=== PATIENT | female | born 1995 | race Caucasian/White ===

== ENCOUNTER 2021-06-15 14:07 | Outpatient (REF) | payer OTHER, SELFPAY ==
[2021-06-16 14:22] LABS: BV Int Neg Control Negative (Negative); BV Int Pos Control Positive (Positive)
[2021-06-16 14:40] LABS: CT PCR NOT DETECTED (Not Detect.); NG PCR NOT DETECTED (Not Detect.)
== END 2021-06-15 14:08 | disposition home or self-care (01) ==
LOC: HO.LAB 14:07
PROVIDERS: Visit Provider Advanced Practice Midwife
DX: Z01.411 Encounter for gynecological examination (general) (routine) with abnormal findings (principal); N89.8 Other specified noninflammatory disorders of vagina; Z20.2 Contact with and (suspected) exposure to infections with a predominantly sexual mode of transmission; N92.1 Excessive and frequent menstruation with irregular cycle; B37.3 Candidiasis of vulva and vagina; E28.2 Polycystic ovarian syndrome
CPT/HCPCS: 87480; 87491; 87510; 87591; 87660

== ENCOUNTER 2021-07-10 23:34 | Emergency (ER) | payer OTHER, SELFPAY ==
--- NOTE | 2021-07-10 23:45 | ED_ITS ---
HPI - Syncope General Chief Complaint: Weakness Stated Complaint: syncope Source: patient Mode of arrival: ambulatory Limitations: no limitations History of Present Illness HPI narrative: 26-year-old female presents with near syncopal episode, feeling shaky, weak, and like she was going to pass out. complaint: felt faint and almost passed out Onset (ago): hour(s) (2) -: minutes(s) Prodromal symptoms: other (Weakness) Context: at rest Injuries sustained associated with event: none Current symptoms: weakness Treatments prior to arrival: none Related Data Home Medications Medication Instructions Recorded Confirmed insulin glargine 100 unit/mL (3 10 unit SUBCUT QPM 06/15/21 mL) subcutaneous pen (Lantus Solostar U-100 Insulin) metformin 500 mg tablet 500 mg PO DAILY 06/15/21 06/15/21 Previous Rx's Medication Instructions Recorded clotrimazole 1 % vaginal cream 1 appful VAGINAL BEDTIME #45 g 06/15/21 fluconazole 150 mg tablet 150 mg PO Q3D #2 tab 06/15/21 metronidazole 500 mg tablet 500 mg PO BID 7 Days #14 tab 06/20/21 Allergies Allergy/AdvReac Type Severity Reaction Status Date / Time No Known Allergies Allergy Verified 07/11/21 00:07 [No Known Allergies*] Review of Systems Review of Systems: Constitutional: Positive weakness, positive shakiness, positive near-syncope No Fever, No Chills ENT/Mouth: No Ear Pain, No Hoarseness, No sore throat Eyes: No Eye Pain, No Swelling, No Redness, No Foreign Body Cardiovascular: No Chest Pain, No SOB Respiratory: No Cough, No Dyspnea Gastrointestinal: No Nausea, No Vomiting, No Diarrhea, No abdominal Pain Genitourinary: No Dysuria, No Hematuria Musculoskeletal: No joint pain, No Myalgias, No Joint Swelling Skin: No Skin lacerations, No rash Neuro: No Weakness, No Numbness, No Paresthesias, No Loss of Consciousness, No Dizziness, No Headache Psych: No Anxiety/Panic, No Depression Heme/Lymph: no easy bruising, no Lymphadenopathy Endocrine: No Polyuria, No Polydipsia Yes all other systems are reviewed and are negative PMFSH Past Medical History Attestation statement: The following information was validated with the patient. Source: old records reviewed Medical History Diabetes PCOS (polycystic ovarian syndrome) Family History Family History Father Cancer Social History Social History Alcohol intake: never Patient Tobacco Use Status: Never used Tobacco Advance Directives: No Patient : No Gender identity: Female Physical Exam Vital Signs: Vital Signs: Last Vital Signs Temp 98.5 F 07/11/21 02:01 Pulse 100 07/11/21 02:01 Resp 14 07/11/21 02:01 BP 99/60 07/11/21 02:01 Pulse Ox 95 07/11/21 02:01 BMI result Body Mass Index 38.2 Appearance: Alert. Oriented X3. No acute distress. Eyes: Pupils equal, round and reactive to light. ENT: Pharynx normal. Neck: Normal inspection. Neck supple. CVS: Normal heart rate and rhythm. Pulses normal. Respiratory: No respiratory distress. Breath sounds normal. Abdomen: Soft and nontender. Skin: Skin warm and dry. Normal skin color. Normal skin turgor. Extremities: No lower extremity edema. Gait well-balanced well coordinated. Neuro: No motor deficit. No sensory deficit. Cranial nerves 2-12 intact. Course Course Course Narrative: 26-year-old female patient presents with near syncopal episode, shakiness and weakness. Patient did not lose consciousness, was able to sit and rest, believes that her blood sugar may be off. Will order labs, fluids, urinalysis test. 01:30 elevated glucose of 400. Will order 15 units subQ insulin. Patient does receive 10 units nightly and did not take her evening dose of insulin today. 02:09 glucose 316, will give 5 IV and 2 L of fluids. Patient states to feel much better, blood pressure is 99/60 and is asymptomatic. Patient does understand that she must follow-up with primary care physician as she needs better control of her blood sugars and may require sliding scale and addition of long-acting insulin. Patient verbalized understanding of and agrees to plan of care discharge home. Patient verbalized understanding of signs and symptoms indicating need for emergent intervention MDM - Syncope MDM Narrative Medical decision making narrative: Hypoglycemia, hyperglycemia Differential Diagnosis Differential diagnosis: Likely vasovagal syncope and dehydration Medical Records Attestation: I reviewed the patient's medical records. Lab Data Attestation: I reviewed the patient's lab results. Result diagrams: 07/11/21 00:29 07/11/21 00:29 Labs: Lab Results 07/11/21 07/11/21 07/11/21 Range/Units 00: 00:29 00:29 WBC 11.8 H (4.8-10.8) X10*3/uL RBC 5.27 (4.20-5.50) X10*6/uL Hgb 16.2 H (12.0-16.0) g/dl Hct 46.8 (37.0-47.0) % MCV 88.8 (80.0-98.0) fL MCH 30.7 (27.0-33.0) pg MCHC 34.6 (31.0-35.0) g/dl RDW 11.8 (11.0-16.0) % Plt Count 362 (160-400) X10*3/uL MPV 8.9 L (9.4-12.3) fL Immature Gran % (Auto) 0.3 (0.0-0.4) % Neut % (Auto) 81.4 H (45-73) % Lymph % (Auto) 13.1 L (20-40) % [place] % (Auto) 4.6 (2-11) % Eos % (Auto) 0.3 (0-4) % Baso % (Auto) 0.3 (0-2) % Lymph # (Auto) 1.6 (1.2-4.9) X10*3/uL [place] # (Auto) 0.5 (0.1-1.2) X10*3/uL Eos # (Auto) 0.0 (0.0-0.4) X10*3/uL Baso # (Auto) 0.0 (0.0-0.2) X10*3/uL Abs Immat Gran (auto) 0.04 H (0.00-0.03) X10*3/uL Absolute Neuts (auto) 9.6 H (2.0-8.3) x10*3/uL Absolute Nucleated RBC 0.000 (0.0-0.012) X10*3/uL Nucleated RBC % (auto) 0.0 (0.0-0.2) /100WBC Sodium (135-145) mmol/L Potassium (3.3-5.1) mmol/L Chloride (96-108) mmol/L Carbon Dioxide (22-29) mmol/L Anion Gap (12-20) BUN (9-16) mg/dL Creatinine (0.5-1.4) mg/dL Estim Creat Clear Calc Estimated GFR POC Glucose 343 H (60-115) mg/dL Random Glucose (60-115) mg/dL Calcium (8.4-10.2) mg/dL Urine Color Urine Appearance Urine pH (5.0-8.0) Ur Specific [place] (1.005-1.025) Urine Protein (NEG-TRACE) MG/DL Urine Glucose (UA) (NEG) MG/DL Urine Ketones (NEG) MG/DL Urine Blood (NEG) Urine Nitrite (NEG) Ur Leukocyte Esterase (NEG) Urine RBC (0) /HPF Urine WBC (0-4) /HPF Ur Squamous Epith Cells /LPF Urine Bacteria /LPF Urine Yeast /HPF Urine Test (NEGATIVE) COVID-19 (CHASE) Negative (Negative) COVID-19 Clin Com See Note 07/11/21 07/11/21 07/11/21 Range/Units 00:29 01:11 01:11 WBC (4.8-10.8) X10*3/uL RBC (4.20-5.50) X10*6/uL Hgb (12.0-16.0) g/dl Hct (37.0-47.0) % MCV (80.0-98.0) fL MCH (27.0-33.0) pg MCHC (31.0-35.0) g/dl RDW (11.0-16.0) % Plt Count (160-400) X10*3/uL MPV (9.4-12.3) fL Immature Gran % (Auto) (0.0-0.4) % Neut % (Auto) (45-73) % Lymph % (Auto) (20-40) % [place] % (Auto) (2-11) % Eos % (Auto) (0-4) % Baso % (Auto) (0-2) % Lymph # (Auto) (1.2-4.9) X10*3/uL [place] # (Auto) (0.1-1.2) X10*3/uL Eos # (Auto) (0.0-0.4) X10*3/uL Baso # (Auto) (0.0-0.2) X10*3/uL Abs Immat Gran (auto) (0.00-0.03) X10*3/uL Absolute Neuts (auto) (2.0-8.3) x10*3/uL Absolute Nucleated RBC (0.0-0.012) X10*3/uL Nucleated RBC % (auto) (0.0-0.2) /100WBC Sodium 133 L (135-145) mmol/L Potassium 5.1 (3.3-5.1) mmol/L Chloride 97 (96-108) mmol/L Carbon Dioxide 24 (22-29) mmol/L Anion Gap 17 (12-20) BUN 13 (9-16) mg/dL Creatinine 0.90 (0.5-1.4) mg/dL Estim Creat Clear Calc 111.4 Estimated GFR > 60 POC Glucose (60-115) mg/dL Random Glucose 411 H* (60-115) mg/dL Calcium 10.1 (8.4-10.2) mg/dL Urine Color YELLOW Urine Appearance HAZY Urine pH 5.5 (5.0-8.0) Ur Specific [place] 1.015 (1.005-1.025) Urine Protein NEG (NEG-TRACE) MG/DL Urine Glucose (UA) >=1000 H (NEG) MG/DL Urine Ketones 40 (NEG) MG/DL Urine Blood TRACE (NEG) Urine Nitrite NEG (NEG) Ur Leukocyte Esterase 1+ H (NEG) Urine RBC 0-2 (0) /HPF Urine WBC 30-49 H (0-4) /HPF Ur Squamous Epith Cells 2+ /LPF Urine Bacteria 2+ /LPF Urine Yeast 3+ /HPF Urine Test NEGATIVE (NEGATIVE) COVID-19 (CHASE) (Negative) COVID-19 Clin Com 07/11/21 Range/Units 02:09 WBC (4.8-10.8) X10*3/uL RBC (4.20-5.50) X10*6/uL Hgb (12.0-16.0) g/dl Hct (37.0-47.0) % MCV (80.0-98.0) fL MCH (27.0-33.0) pg MCHC (31.0-35.0) g/dl RDW (11.0-16.0) % Plt Count (160-400) X10*3/uL MPV (9.4-12.3) fL Immature Gran % (Auto) (0.0-0.4) % Neut % (Auto) (45-73) % Lymph % (Auto) (20-40) % [place] % (Auto) (2-11) % Eos % (Auto) (0-4) % Baso % (Auto) (0-2) % Lymph # (Auto) (1.2-4.9) X10*3/uL [place] # (Auto) (0.1-1.2) X10*3/uL Eos # (Auto) (0.0-0.4) X10*3/uL Baso # (Auto) (0.0-0.2) X10*3/uL Abs Immat Gran (auto) (0.00-0.03) X10*3/uL Absolute Neuts (auto) (2.0-8.3) x10*3/uL Absolute Nucleated RBC (0.0-0.012) X10*3/uL Nucleated RBC % (auto) (0.0-0.2) /100WBC Sodium (135-145) mmol/L Potassium (3.3-5.1) mmol/L Chloride (96-108) mmol/L Carbon Dioxide (22-29) mmol/L Anion Gap (12-20) BUN (9-16) mg/dL Creatinine (0.5-1.4) mg/dL Estim Creat Clear Calc Estimated GFR POC Glucose 316 H (60-115) mg/dL Random Glucose (60-115) mg/dL Calcium (8.4-10.2) mg/dL Urine Color Urine Appearance Urine pH (5.0-8.0) Ur Specific [place] (1.005-1.025) Urine Protein (NEG-TRACE) MG/DL Urine Glucose (UA) (NEG) MG/DL Urine Ketones (NEG) MG/DL Urine Blood (NEG) Urine Nitrite (NEG) Ur Leukocyte Esterase (NEG) Urine RBC (0) /HPF Urine WBC (0-4) /HPF Ur Squamous Epith Cells /LPF Urine Bacteria /LPF Urine Yeast /HPF Urine Test (NEGATIVE) COVID-19 (CHASE) (Negative) COVID-19 Clin Com ECG Data Attestation: I personally reviewed and interpreted this ECG as follows: ECG interpretation date: 07/11/21 ECG interpretation time: 00:53 Prior ECG tracings: not available for review Interpretation: Vent. rate 74 BPM WV interval 126 ms QRS duration 74 ms QT/QTc 358/397 ms P-R-T axes 30 45 40 Normal sinus rhythm Normal ECG No previous ECGs available Critical Care Time Critical Care Time Critical Care Time: Yes Total Critical Care Time: 40 Attestation: I have personally provided critical care time exclusive of time spent on separately billable procedures. Time includes review of laboratory data, radiology results, discussion with consultants, and monitoring for potential decompensation. Interventions were performed as documented. Discharge Plan Discharge Clinical Impression: Diabetes, Dehydration, Hyperglycemia Patient Disposition: Home, Self-Care Instructions: Dehydration (ED), Diabetic Hyperglycemia (ED) Additional Instructions: You were evaluated for a near syncopal episode. Your blood sugar was 411. We gave you 15 units of insulin sub cutaneous and 5 units of insulin IV along with 2 L of fluid. You must follow-up with her primary care physician and endocrinology as you may need better glucose control. You may need a sliding scale or a long acting insulin. Please discuss this with your primary care provider. Thank you for choosing this emergency department for evaluation. Please follow-up with primary care physician as needed. Return to the emergency department for any new, concerning, or worsening symptoms. Prescriptions: No Action metronidazole 500 mg tablet 500 mg PO BID 7 Days Qty: 14 0RF Rx Instructions: Take with food, Avoid alcohol and vinegar products metformin 500 mg tablet 500 mg PO DAILY 0RF Lantus Solostar U-100 Insulin 100 unit/mL (3 mL) insulin pen 10 unit subcut QPM 0RF fluconazole 150 mg tablet 150 mg PO Q3D Qty: 2 5RF Rx Instructions: may repeat second dose 72 hrs after first dose if symptoms persist clotrimazole 1 % cream 1 appful vaginal BEDTIME Qty: 45 4RF Stand Alone Forms: Work/School Release
--- NOTE | 2021-07-10 23:47 | ECG_ITS ---
Test Reason : MED CLEARANCE Blood Pressure : / mmHG Vent. Rate : 074 BPM Atrial Rate : 074 BPM P-R Int : 126 ms QRS Dur : 074 ms QT Int : 358 ms P-R-T Axes : 030 045 040 degrees QTc Int : 397 ms Normal sinus rhythm Normal ECG No previous ECGs available Referred By: Haleigh Khanna Electronically Signed By:Brian Talley
[2021-07-10 23:56] VITALS: BP 105/68; PULSE 87; RESP 12; TEMP 36.9; O2SAT 94
[2021-07-11 00:03] VITALS: BMI 38.2
[2021-07-11 00:28] LABS: Glucose, Whole Blood 343 mg/dL (60-115)
[2021-07-11] MEDS: 0.9 % Sodium Chloride 1,000 ML 999 ML IVCONT ×2 (00:29→02:29)
--- NOTE | 2021-07-11 00:31 | PC.NURSE ---
PT stated that she was diagnosed with diabetes one year ago and that her blood sugar usually runs high (>300). PT stated that she takes metformin and Lantus at home. PT POC was elevated at this time.
[2021-07-11 00:35] LABS: MANUAL DIFF FLAG NO
[2021-07-11 00:36] LABS: Basophils Percent Auto 0.3 % (0-2); Eosinophils Percent Auto 0.3 % (0-4); Hematocrit 46.8 % (37.0-47.0); Hemoglobin 16.2 g/dl (12.0-16.0); Imm Gran Abs Auto 0.04 X10*3/uL (0.00-0.03); Imm Gran Pct Auto 0.3 % (0.0-0.4); Lymphocytes Absolute Auto 1.6 X10*3/uL (1.2-4.9); Lymphocytes Percent Auto 13.1 % (20-40); Mean Corpuscular HGB Conc 34.6 g/dl (31.0-35.0); Mean Corpuscular Hemoglobin 30.7 pg (27.0-33.0); Mean Corpuscular Volume 88.8 fL (80.0-98.0); Mean Platelet Volume 8.9 fL (9.4-12.3); Monocytes Absolute Auto 0.5 X10*3/uL (0.1-1.2); Monocytes Percent Auto 4.6 % (2-11); Neutrophils Absolute Auto 9.6 x10*3/uL (2.0-8.3); Neutrophils Percent Auto 81.4 % (45-73); Platelet Count 362 X10*3/uL (160-400); Red Blood Count 5.27 X10*6/uL (4.20-5.50); Red Cell Distribution Width 11.8 % (11.0-16.0); White Blood Count 11.8 X10*3/uL (4.8-10.8)
[2021-07-11 00:52] LABS: COVID-19 Test Negative (Negative); IDNOW Serial# 9DD0AD1C
[2021-07-11 00:59] LABS: Anion Gap 17 (12-20); Blood Urea Nitrogen 13 mg/dL (9-16); Calcium 10.1 mg/dL (8.4-10.2); Carbon Dioxide 24 mmol/L (22-29); Chloride 97 mmol/L (96-108); Creatinine Clr Calc Pharmacy 111.4; Estimated Glomerular Filt Rate > 60; Glucose Random 411 mg/dL (60-115); Potassium 5.1 mmol/L (3.3-5.1); Sodium 133 mmol/L (135-145)
[2021-07-11 01:16] LABS: Appearance Urine HAZY; Color Urine YELLOW; Glucose Urine UA >=1000 MG/DL (NEG); Leukocyte Esterase Urine 1+ (NEG); Nitrite Urine NEG (NEG); PH 5.5 (5.0-8.0); Specific Gravity - Urine 1.015 (1.005-1.025); UACC Culture Trigger YES; Urine Blood TRACE (NEG); Urine Ketones 40 MG/DL (NEG); Urine Protein NEG (NEG-TRACE)
[2021-07-11 01:18] LABS: UPreg QC Valid YES; Urine Pregnancy NEGATIVE (NEGATIVE)
[2021-07-11 01:29] VITALS: BP 96/62; PULSE 82; RESP 18; O2SAT 95
[2021-07-11 01:33] LABS: RBC Urine 0-2 /HPF (0); Squamous Epithelial Cell Urine 2+ /LPF; WBC Urine 30-49 /HPF (0-4)
[2021-07-11 01:34] LABS: Bacteria Urine 2+ /LPF
[2021-07-11] MEDS: Insulin Lispro 100 UNIT/ML 3 ML VIAL 15 UNIT SUBCUT (01:37)
[2021-07-11 02:01] VITALS: BP 99/60; PULSE 100; RESP 14; TEMP 36.9; O2SAT 95
[2021-07-11 02:13] LABS: Glucose, Whole Blood 316 mg/dL (60-115)
[2021-07-11] MEDS: Insulin Regular, Human 100 UNIT/ML 3 ML VIAL IVPUSH (02:29)
[2021-07-11 03:36] LABS: Glucose, Whole Blood 198 mg/dL (60-115)
== END 2021-07-11 03:36 | disposition home or self-care (01) ==
PROVIDERS: Nurse Practitioner Family; Emergency Provider Internal Medicine
DX: E11.65 Type 2 diabetes mellitus with hyperglycemia (principal); E86.0 Dehydration; Z20.822 Contact with and (suspected) exposure to COVID-19; Z79.4 Long term (current) use of insulin
CPT/HCPCS: 36415; 80048; 81001; 81025; 82947; 85025; 87086; 87147; 87635; 93005; 96361; 96374; 99284; 99291

== ENCOUNTER 2022-03-31 07:05 | Emergency (ER) | payer OTHER, SELFPAY ==
[2022-03-31 07:07] VITALS: BP 122/80; PULSE 100; RESP 18; TEMP 36.7; O2SAT 98; BMI 35.6
[2022-03-31 07:30] LABS: Appearance Urine Turbid; Color Urine Yellow; Glucose Urine UA >=1000 mg/dL (Negative); Leukocyte Esterase Urine Moderate (2+) (Negative); Nitrite Urine Negative (Negative); Specific Gravity - Urine >= 1.030 (1.005-1.025); UMIC TRIGGER UACC YES; Urine Blood Large (3+) (Negative); Urine Ketones Negative (Negative); Urine Protein 100 (2+) mg/dL (Neg-Trace)
[2022-03-31 07:33] VITALS: BP 108/76; PULSE 89; RESP 12; TEMP 36.9; O2SAT 98
[2022-03-31 07:45] LABS: Bacteria Urine 4+ (None Seen); Hyaline Casts Urine 0-2 /LPF (0-2); RBC Urine >20 /HPF (0-2); UACC Culture Trigger YES; WBC Clumps Urine Present; WBC Urine >50 /HPF (0-5)
--- NOTE | 2022-03-31 08:09 | ED.FEMALEGU ---
HPI - Female Genitourinary General Chief complaint: Urogenital-Female Stated complaint: pain upon urination Time Seen by Provider: 03/31/22 07:52 Source: patient Mode of arrival: ambulatory Limitations: no limitations History of Present Illness HPI Narrative: diffficult to urinate,pain during urination,denies fever/chills/abdominal pain/nausea/vomiting.She is diabetic MD elicited complaint: dysuria Pertinent past history: diabetes Onset (ago): day(s) (2) Severity: mild Female Urogenital Radiation: Non-Radiating Consistency: constant Urinary symptoms: Dysuria, Urgency, Frequency and Difficulty Urinating Exacerbating factors: urination Relieving factors: none Associated symptoms: denies other symptoms Related Data Home Medications Medication Instructions Recorded Confirmed insulin glargine 100 unit/mL (3 10 unit subcut QPM 06/15/21 mL) subcutaneous pen (Lantus Solostar U-100 Insulin) metformin 500 mg tablet 500 mg PO DAILY 06/15/21 06/15/21 Previous Rx's Medication Instructions Recorded clotrimazole 1 % vaginal cream 1 appful vaginal BEDTIME #45 grams 06/15/21 fluconazole 150 mg tablet 150 mg PO Q3D 2 doses #2 tabs 06/15/21 metronidazole 500 mg tablet 500 mg PO BID 7 days #14 tabs 06/20/21 cephalexin 500 mg capsule 500 mg PO Q8H #21 caps 03/31/22 phenazopyridine 200 mg tablet 200 mg PO BID 2 days #4 tabs 03/31/22 (Pyridium) Allergies Allergy/AdvReac Type Severity Reaction Status Date / Time No Known Allergies Allergy Verified 07/11/21 00:07 [No Known Allergies*] Review of Systems Review of Systems: Yes all other systems are reviewed and are negative Constitutional: Constitutional: Denies fever(s) Gastrointestinal: Gastrointestinal: Denies nausea and Denies vomiting Neurologic: Reports system reviewed and no additional complaints, except as documented COUNT INCLUDES [facility] Past Medical History COUNT INCLUDES THE [facility] Narrative: diabetes Medical History Diabetes PCOS (polycystic ovarian syndrome) Family History Family History Father Cancer Social History Social History Alcohol intake: never Patient Tobacco Use Status: Never used Tobacco Advance Directives: No Advance Directives Information Provided: No Gender identity: Female Physical Exam Vital Signs: Vital Signs: Last Vital Signs Temp 98.5 F 03/31/22 07:33 Pulse 89 03/31/22 07:33 Resp 12 03/31/22 07:33 BP 108/76 03/31/22 07:33 Pulse Ox 98 03/31/22 07:33 O2 Del Method 03/31/22 07:33 BMI result Body Mass Index 35.6 Const: General: cooperative Orientation/consciousness: patient oriented x3 HEENT: Head: Yes normal to inspection General nose exam: Normal external nose present Mouth: Normal oral and palatal mucosa present Neck: Neck: Yes normal visual inspection and Yes full ROM Chest: Chest palpation & inspection: normal inspection of the chest Resp: Effort & Inspection: normal respiratory effort Auscultation: clear to auscultation bilaterally Cardio: Jugular venous distension: no JVD Rate: regular rate Rhythm: regular rhythm GI: Inspection: Yes normal to inspection Palpation (GI): Soft to palpation Skin: General skin exam: no rashes or lesions noted and elasticity normal Lesions: no lesions Rashes: no rashes Neuro: General: patient oriented x3 MDM - Female Genitourinary MDM Narrative Medical decision making narrative: This is a 26 years old diabetic patient presented with dysuria frequency and urinalysis consistent with the UTI, will discharge home on p.o. antibiotics Lab Data Labs: Lab Results 03/31/22 Range/Units 07:15 Urine Color Yellow Urine Appearance Turbid Urine pH 6.0 (5.0-9.0) Ur Specific [place] >= 1.030 H (1.005-1.025) Urine Protein 100 (2+) H (Neg-Trace) mg/dL Urine Glucose (UA) >=1000 H (Negative) mg/dL Urine Ketones Negative (Negative) mg/dL Urine Blood Large (3+) H (Negative) Urine Nitrite Negative (Negative) Ur Leukocyte Esterase Moderate (2+) H (Negative) Urine RBC >20 H (0-2) /HPF Urine WBC >50 H (0-5) /HPF Urine WBC Clumps Present Ur Squamous Epith Cells 3-5 (0-2) /HPF Urine Bacteria 4+ (None Seen) Hyaline Casts 0-2 (0-2) /LPF Discharge Plan Discharge Clinical Impression: UTI (urinary tract infection) Patient Disposition: Home, Self-Care Instructions: Acute Urinary Retention in Women (ED) Prescriptions: New cephalexin 500 mg capsule 500 mg PO Q8H Qty: 21 0RF phenazopyridine [Pyridium] 200 mg tablet 200 mg PO BID 2 Days Qty: 4 0RF No Action metronidazole 500 mg tablet 500 mg PO BID 7 Days Qty: 14 0RF Rx Instructions: Take with food, Avoid alcohol and vinegar products metformin 500 mg tablet 500 mg PO DAILY Lantus Solostar U-100 Insulin 100 unit/mL (3 mL) insulin pen 10 unit subcut QPM fluconazole 150 mg tablet 150 mg PO Q3D Qty: 2 5RF Rx Instructions: may repeat second dose 72 hrs after first dose if symptoms persist clotrimazole 1 % cream 1 appful vaginal BEDTIME Qty: 45 4RF Stand Alone Forms: Work/School Release Interventions: ED Discharge Assessment Last Done: 03/31/22 08:32 Discharge Date/Time: 03/31/22 08:53
[2022-03-31] MEDS: cephALEXin 500 MG CAPSULE PO (08:24)
[2022-03-31] MEDS: Phenazopyridine HCL 200 MG TABLET PO (08:24)
== END 2022-03-31 08:53 | disposition home or self-care (01) ==
LOC: HO.ED 08:51
PROVIDERS: Emergency Provider Emergency Medicine
DX: N39.0 Urinary tract infection, site not specified (principal); R30.0 Dysuria; R39.15 Urgency of urination; Z79.899 Other long term (current) drug therapy
CPT/HCPCS: 81001; 87086; 99283

== ENCOUNTER 2022-11-05 07:10 | Emergency (ER) | payer OTHER, SELFPAY ==
[2022-11-05 07:16] VITALS: BP 121/78; PULSE 101; RESP 17; TEMP 36.9; O2SAT 96; BMI 37.2
[2022-11-05 07:40] LABS: MANUAL DIFF FLAG NO
[2022-11-05 07:43] LABS: Basophils Absolute Auto 0.1 X10*3/uL (0.0-0.2); Basophils Percent Auto 0.4 % (0-2); Eosinophils Absolute Auto 0.1 X10*3/uL (0.0-0.4); Eosinophils Percent Auto 0.4 % (0-4); Hematocrit 47.5 % (37.0-47.0); Hemoglobin 16.2 g/dl (12.0-16.0); Imm Gran Abs Auto 0.04 X10*3/uL (0.00-0.03); Imm Gran Pct Auto 0.3 % (0.0-0.4); Lymphocytes Absolute Auto 3.8 X10*3/uL (1.2-4.9); Lymphocytes Percent Auto 27.4 % (20-40); Mean Corpuscular HGB Conc 34.1 g/dl (31.0-35.0); Mean Corpuscular Hemoglobin 29.5 pg (27.0-33.0); Mean Corpuscular Volume 86.4 fL (80.0-98.0); Monocytes Absolute Auto 0.9 X10*3/uL (0.1-1.2); Monocytes Percent Auto 6.1 % (2-11); Neutrophils Absolute Auto 9.2 x10*3/uL (2.0-8.3); Neutrophils Percent Auto 65.4 % (45-73); Platelet Count 435 X10*3/uL (160-400); Red Cell Distribution Width 11.9 % (11.0-16.0)
[2022-11-05 07:50] LABS: Appearance Urine Clear; Color Urine Yellow; Glucose Urine UA >=1000 mg/dL (Negative); Leukocyte Esterase Urine Moderate (2+) (Negative); Nitrite Urine Negative (Negative); Specific Gravity - Urine >= 1.030 (1.005-1.025); UMIC TRIGGER UACC YES; Urine Blood Moderate (2+) (Negative); Urine Ketones Negative (Negative); Urine Protein 30 (1+) mg/dL (Neg-Trace)
[2022-11-05 07:53] LABS: UPreg QC Valid YES; Urine Pregnancy NEGATIVE (NEGATIVE)
[2022-11-05 07:58] LABS: Bacteria Urine 3+ (None Seen); Hyaline Casts Urine 0-2 /LPF (0-2); RBC Urine >20 /HPF (0-2); Squamous Epithelial Cell Urine 0-2 /HPF (0-2); UACC Culture Trigger YES; WBC Urine >50 /HPF (0-5)
[2022-11-05 08:14] LABS: Anion Gap 15 (12-20); Blood Urea Nitrogen 10 mg/dL (9-16); Calcium 10.3 mg/dL (8.4-10.2); Carbon Dioxide 29 mmol/L (22-29); Chloride 96 mmol/L (96-108); Estimated Glomerular Filt Rate > 60; Glucose Random 451 mg/dL (60-115); Potassium 4.4 mmol/L (3.3-5.1); Sodium 136 mmol/L (135-145)
[2022-11-05] MEDS: Ondansetron ODT 4 MG TAB.RAPDIS TRANSLINGU (08:18)
[2022-11-05] MEDS: Phenazopyridine HCL 200 MG TABLET PO (08:19)
[2022-11-05] MEDS: Insulin Lispro 100 UNIT/ML 3 ML VIAL 10 UNIT SUBCUT (08:36)
[2022-11-05] MEDS: cephALEXin 500 MG CAPSULE PO (08:36)
[2022-11-05] MEDS: metFORMIN HCl 1,000 MG TABLET 1000 MG PO (08:36)
[2022-11-05 08:38] LABS: Glucose, Whole Blood 419 mg/dL (60-115)
[2022-11-05 09:18] VITALS: BP 101/66; PULSE 76; RESP 16; TEMP 37.1; O2SAT 96
[2022-11-05 11:39] VITALS: BP 111/63; PULSE 80; RESP 16; TEMP 36.9; O2SAT 97
[2022-11-05 11:49] LABS: Glucose, Whole Blood 229 mg/dL (60-115)
--- NOTE | 2022-11-05 13:08 | ED_ITS ---
HPI - General Adult General Chief complaint: General Medical Stated complaint: nausea abd pain Time Seen by Provider: 11/05/22 07:45 Source: patient Mode of arrival: ambulatory Limitations: no limitations History of Present Illness HPI narrative: 27-year-old female type 2 diabetes noncompliant with medication presents with urinary frequency, urgency, dysuria. She has no hematuria. Symptoms are severe. Associated with suprapubic pain. The pain does not radiate. She denies any back or flank pain. He does have some mild nausea but no vomiting. Denies any fevers or chills. She denies any vaginal bleeding or discharge. She also could complains of polydipsia. Patient has been off her medications for quite some time. Related Data Home Medications Medication Instructions Recorded Confirmed insulin glargine 100 unit/mL (3 10 unit subcut QPM 06/15/21 mL) subcutaneous pen (Lantus Solostar U-100 Insulin) metformin 500 mg tablet 500 mg PO DAILY 06/15/21 06/15/21 Previous Rx's Medication Instructions Recorded clotrimazole 1 % vaginal cream 1 appful vaginal BEDTIME #45 grams 06/15/21 fluconazole 150 mg tablet 150 mg PO Q3D 2 doses #2 tabs 06/15/21 metronidazole 500 mg tablet 500 mg PO BID 7 days #14 tabs 06/20/21 cephalexin 500 mg capsule 500 mg PO Q8H #21 caps 03/31/22 phenazopyridine 200 mg tablet 200 mg PO BID 2 days #4 tabs 03/31/22 (Pyridium) blood sugar diagnostic (Blood #100 ea 11/05/22 Glucose Test strips) blood-glucose meter (Blood Glucose #1 ea 11/05/22 Monitoring kit) cephalexin 500 mg capsule 500 mg PO BID #14 caps 11/05/22 lancets 26 gauge (Easy Touch #100 ea 11/05/22 Safety Lancets) metformin 1,000 mg 24 hr 1,000 mg PO DAILY #30 tabs 11/05/22 tablet,extended release Allergies Allergy/AdvReac Type Severity Reaction Status Date / Time No Known Allergies Allergy Verified 07/11/21 00:07 [No Known Allergies*] Review of Systems Review of Systems: CONSTITUTIONAL: Denies weight loss, fever and chills. HEENT: Denies changes in vision and hearing. RESPIRATORY: Denies SOB and cough. CV: Denies palpitations no CP. GI: Denies abdominal pain, nausea, vomiting and diarrhea. : + dysuria and urinary frequency. MSK: Denies myalgia and joint pain. SKIN: Denies rash and pruritus. NEUROLOGICAL: Denies headache and syncope. PSYCHIATRIC: Denies recent changes in mood. Denies anxiety and depression. All other ROS are negative unless in HPI PMFSH Past Medical History Medical History Diabetes PCOS (polycystic ovarian syndrome) Family History Family History Father Cancer Social History Social History Alcohol intake: never Patient Tobacco Use Status: Never used Tobacco Smoked in Last 30 Days: No Use of substances other than those prescribed or required for medical reasons: No Advance Directives: No Advance Directives Information Provided: Yes Patient : No Gender identity: Female Physical Exam ED Vital Signs: Vital Signs - 24 hr 11/05/22 07:16 11/05/22 09:18 11/05/22 11:39 Temperature 98.4 F 98.7 F 98.4 F Pulse Rate 101 H 76 80 Respiratory Rate 17 16 16 Blood Pressure 121/78 101/66 111/63 Pulse Oximetry 96 96 97 Oxygen Delivery Method Room Air Room Air Room Air BMI result Body Mass Index 37.2 GEN: Well developed, no acute distress, alert, oriented HEENT: Normocephalic, atraumatic, normal external ears, nose appears normal, no oropharyngeal edema or exudates Eyes: Normal to appearance Neck: Supple, no lymphadenopathy Respiratory: Talks in complete sentences, no respiratory distress, clear to auscultation bilaterally Cardiovascular: Regular rate and rhythm, no murmurs rubs or gallops Abdomen: Soft, nontender, nondistended, no guarding, no rebound Back: No CVA tenderness Extremities: No clubbing cyanosis or edema Neurologic: No focal neurologic deficits, cranial nerves 2-12 intact, strength is 5/5 bilaterally Skin: No rash Course Course Course Narrative: Patient presents with suprapubic pain and urinary complaints. She also has some polydipsia. Symptoms are consistent with urinary tract infection plus her hyperglycemia. While in the emergency department, she was treated with metform in and insulin. Blood sugars responded nicely. In addition, she was treated with Keflex and Pyridium for her urinary complaints. I will be discharging the patient. I have prescribed a glucometer, test strips, lancets, metformin 1000 mg extended release and Keflex for UTI. I have referred her to primary care. Medications Administered Discontinued Medications Generic Name Dose Route Start Last Admin Trade Name rAt PRN Reason Stop Dose Admin Cephalexin HCl 500 mg 11/05/22 08:19 11/05/22 08:36 Cephalexin 500 Mg Capsule PO 11/05/22 08:20 500 mg ONCE ONE Administration Insulin Human Lispro 10 unit 11/05/22 08:19 11/05/22 08:36 Insulin Lispro 100 Unit/Ml 3 Ml Vial SUBCUT 11/05/22 08:20 10 unit ONCE ONE Administration Metformin HCl 1,000 mg 11/05/22 08:19 11/05/22 08:36 Metformin Hcl 1,000 Mg Tablet PO 11/05/22 08:20 1,000 mg ONCE ONE Administration Ondansetron HCl 4 mg 11/05/22 08:02 11/05/22 08:18 Ondansetron Odt 4 Mg Tab.Rapdis TRANSLINGU 11/05/22 08:03 4 mg ONCE ONE Administration Phenazopyridine HCl 200 mg 11/05/22 08:02 11/05/22 08:19 Phenazopyridine Hcl 200 Mg Tablet PO 11/05/22 08:03 200 mg ONCE ONE Administration Medical Decision Making Medical Decision Making [facility] Narrative: 27-year-old female with history of noncompliant diabetic presents with urinary tract symptoms. Examination was benign. Patient have urinalysis to rule UTI, kidney stone. Also, due to her noncompliance, will check a blood sugar. Possible diagnosis could include hyperglycemia, DKA. Differential Diagnosis Differential Diagnoses: The differential diagnosis associated with the presentation includes (UTI, pyelonephritis, gastroenteritis, noncontrolled diabetes, DKA) Uncontrolled diabetes, UTI Lab Data [facility] Lab Attestation statement: I reviewed the patient's lab results. 11/05/22 07:34 11/05/22 07:34 Labs: Lab Results 11/05/22 11/05/22 11/05/22 Range/Units 07:34 07:34 07:34 WBC 14.0 H (4.8-10.8) X10*3/uL RBC 5.50 (4.20-5.50) X10*6/uL Hgb 16.2 H (12.0-16.0) g/dl Hct 47.5 H (37.0-47.0) % MCV 86.4 (80.0-98.0) fL MCH 29.5 (27.0-33.0) pg MCHC 34.1 (31.0-35.0) g/dl RDW 11.9 (11.0-16.0) % Plt Count 435 H (160-400) X10*3/uL MPV 9.0 L (9.4-12.3) fL Immature Gran % (Auto) 0.3 (0.0-0.4) % Neut % (Auto) 65.4 (45-73) % Lymph % (Auto) 27.4 (20-40) % [place] % (Auto) 6.1 (2-11) % Eos % (Auto) 0.4 (0-4) % Baso % (Auto) 0.4 (0-2) % Lymph # (Auto) 3.8 (1.2-4.9) X10*3/uL [place] # (Auto) 0.9 (0.1-1.2) X10*3/uL Eos # (Auto) 0.1 (0.0-0.4) X10*3/uL Baso # (Auto) 0.1 (0.0-0.2) X10*3/uL Abs Immat Gran (auto) 0.04 H (0.00-0.03) X10*3/uL Absolute Neuts (auto) 9.2 H (2.0-8.3) x10*3/uL Absolute Nucleated RBC 0.000 (0.0-0.012) X10*3/uL Nucleated RBC % (auto) 0.0 (0.0-0.2) /100WBC Sodium 136 (135-145) mmol/L Potassium 4.4 (3.3-5.1) mmol/L Chloride 96 (96-108) mmol/L Carbon Dioxide 29 (22-29) mmol/L Anion Gap 15 (12-20) BUN 10 (9-16) mg/dL Creatinine 0.95 (0.5-1.4) mg/dL Estim Creat Clear Calc 103.0 Estimated GFR > 60 POC Glucose (60-115) mg/dL Random Glucose 451 H* (60-115) mg/dL Calcium 10.3 H (8.4-10.2) mg/dL Urine Color Yellow Urine Appearance Clear Urine pH 6.0 (5.0-9.0) Ur Specific [place] >= 1.030 H (1.005-1.025) Urine Protein 30 (1+) H (Neg-Trace) mg/dL Urine Glucose (UA) >=1000 H (Negative) mg/dL Urine Ketones Negative (Negative) mg/dL Urine Blood Moderate (2+) H (Negative) Urine Nitrite Negative (Negative) Ur Leukocyte Esterase Moderate (2+) H (Negative) Urine RBC >20 H (0-2) /HPF Urine WBC >50 H (0-5) /HPF Ur Squamous Epith Cells 0-2 (0-2) /HPF Urine Bacteria 3+ (None Seen) Hyaline Casts 0-2 (0-2) /LPF Urine Yeast Present Urine Test (NEGATIVE) 11/05/22 11/05/22 11/05/22 Range/Units 07:34 08:32 11:46 WBC (4.8-10.8) X10*3/uL RBC (4.20-5.50) X10*6/uL Hgb (12.0-16.0) g/dl Hct (37.0-47.0) % MCV (80.0-98.0) fL MCH (27.0-33.0) pg MCHC (31.0-35.0) g/dl RDW (11.0-16.0) % Plt Count (160-400) X10*3/uL MPV (9.4-12.3) fL Immature Gran % (Auto) (0.0-0.4) % Neut % (Auto) (45-73) % Lymph % (Auto) (20-40) % [place] % (Auto) (2-11) % Eos % (Auto) (0-4) % Baso % (Auto) (0-2) % Lymph # (Auto) (1.2-4.9) X10*3/uL [place] # (Auto) (0.1-1.2) X10*3/uL Eos # (Auto) (0.0-0.4) X10*3/uL Baso # (Auto) (0.0-0.2) X10*3/uL Abs Immat Gran (auto) (0.00-0.03) X10*3/uL Absolute Neuts (auto) (2.0-8.3) x10*3/uL Absolute Nucleated RBC (0.0-0.012) X10*3/uL Nucleated RBC % (auto) (0.0-0.2) /100WBC Sodium (135-145) mmol/L Potassium (3.3-5.1) mmol/L Chloride (96-108) mmol/L Carbon Dioxide (22-29) mmol/L Anion Gap (12-20) BUN (9-16) mg/dL Creatinine (0.5-1.4) mg/dL Estim Creat Clear Calc Estimated GFR POC Glucose 419 H* 229 H (60-115) mg/dL Random Glucose (60-115) mg/dL Calcium (8.4-10.2) mg/dL Urine Color Urine Appearance Urine pH (5.0-9.0) Ur Specific [place] (1.005-1.025) Urine Protein (Neg-Trace) mg/dL Urine Glucose (UA) (Negative) mg/dL Urine Ketones (Negative) mg/dL Urine Blood (Negative) Urine Nitrite (Negative) Ur Leukocyte Esterase (Negative) Urine RBC (0-2) /HPF Urine WBC (0-5) /HPF Ur Squamous Epith Cells (0-2) /HPF Urine Bacteria (None Seen) Hyaline Casts (0-2) /LPF Urine Yeast Urine Test NEGATIVE (NEGATIVE) Tests considered The following testing was considered but not selected: Ultrasound Prescription Management I considered prescription management with: Pain Medication and Antibiotic Chronic Conditions Patient?s care impacted by: Diabetes Discharge Plan Discharge Clinical Impression: Acute lower UTI, Uncontrolled diabetes mellitus with hyperglycemia Patient Disposition: Home, Self-Care Instructions: Urinary Tract Infection in Women (ED), Diabetic Hyperglycemia (ED), How to Check your Blood Sugar (ED) Prescriptions: New metformin 1,000 mg tablet,ER cj.retention 24 hr 1,000 mg PO DAILY Qty: 30 0RF cephalexin 500 mg capsule 500 mg PO BID Qty: 14 0RF (DME) blood-glucose meter [Blood Glucose Monitoring] Kit See Rx Instructions .Route Qty: 1 0RF Rx Instructions: As directed (DME) Blood Glucose Test Strip See Rx Instructions .Route Qty: 100 0RF Rx Instructions: 3 times daily (DME) lancets [Easy Touch Safety Lancets] 26 gauge misc See Rx Instructions .Route Qty: 100 0RF Rx Instructions: As directed No Action metronidazole 500 mg tablet 500 mg PO BID 7 Days Qty: 14 0RF Rx Instructions: Take with food, Avoid alcohol and vinegar products cephalexin 500 mg capsule 500 mg PO Q8H Qty: 21 0RF phenazopyridine [Pyridium] 200 mg tablet 200 mg PO BID 2 Days Qty: 4 0RF metformin 500 mg tablet 500 mg PO DAILY Lantus Solostar U-100 Insulin 100 unit/mL (3 mL) insulin pen 10 unit subcut QPM fluconazole 150 mg tablet 150 mg PO Q3D Qty: 2 5RF Rx Instructions: may repeat second dose 72 hrs after first dose if symptoms persist clotrimazole 1 % cream 1 appful vaginal BEDTIME Qty: 45 4RF Ref[place]: [facility] [place] [facility] [Provider Group]
== END 2022-11-05 13:18 | disposition home or self-care (01) ==
PROVIDERS: Emergency Provider Emergency Medicine
DX: N39.0 Urinary tract infection, site not specified (principal); B95.7 Other staphylococcus as the cause of diseases classified elsewhere; E11.65 Type 2 diabetes mellitus with hyperglycemia; Z79.4 Long term (current) use of insulin
CPT/HCPCS: 36415; 80048; 81001; 81025; 82947; 85025; 87086; 87088; 87186; 99283; 99284

== ENCOUNTER 2022-11-07 07:00 | Emergency (ER) | payer OTHER, SELFPAY ==
--- NOTE | ~2022-11-07 | CT_ITS ---
EXAMINATION: CT ABDOMEN AND PELVIS WITHOUT CONTRAST CLINICAL INFORMATION: Question of infected stone COMPARISON: None available. TECHNIQUE: Multidetector volumetric imaging was performed from the superior aspect of the liver through the pubic symphysis. Sagittal and coronal reformatted images were obtained on the technologist's workstation. This CT examination was performed using dose optimization techniques as appropriate, variously including the following: *Automated exposure control *Adjustment of mA and/or kV according to patient size (this includes techniques or standardized protocols for targeted exams where dose is matched to indication/reason for exam; i.e. extremities or head) *Use of iterative reconstruction technique DLP: 650r mGy-cm FINDINGS: LUNG BASES: The visualized lung bases are unremarkable. LIVER, GALLBLADDER, AND BILIARY TREE: The liver is mildly enlarged at 17.5 cm in greatest length and demonstrates decreased attenuation consistent with hepatic steatosis. Adjacent to the gallbladder, there is an ill-defined area of decreased attenuation measuring 4.1 x 2.7 x 2.0 cm (2:25:42) differential would include entities such as hemangioma and fat infiltration. No other focal hepatic lesion or biliary ductal dilatation is present. The gallbladder is contracted but otherwise unremarkable with no evidence of radiopaque gallstones, gallbladder wall thickening, or obvious pericholecystic inflammatory changes. PANCREAS: Unremarkable. SPLEEN: Minimally prominent at 12.2 cm. ADRENAL GLANDS: Unremarkable. KIDNEYS AND URETERS: The right kidney is slightly larger than the left and demonstrates slightly decreased attenuation. There is some minimal fullness in the renal pelvis compared to the left. Please correlate with findings of pyelonephritis. No renal calculi are seen. Both ureters are nondilated. No renal masses are seen. BLADDER: Unremarkable. GASTROINTESTINAL TRACT: The small and large bowel are unremarkable. The appendix is unremarkable. ABDOMINAL WALL: No significant hernia is appreciated. LYMPH NODES: Normal. VASCULAR: Unremarkable. PELVIC VISCERA: Unremarkable. OSSEOUS STRUCTURES: Unremarkable. CT/CT abdomen pelvis wo IV con IMPRESSION: 1. The right kidney is slightly larger than the left and demonstrates slightly decreased attenuation. There is some minimal fullness in the renal pelvis compared to the left. There is no gross hydronephrosis. No calculi are seen. Please correlate with findings of pyelonephritis. 2. Incidental note made of mildly enlarged fatty liver with an ill-defined area of decreased attenuation adjacent to the gallbladder. Differential would include hemangioma and fat infiltration. MRI could be performed for further evaluation. Fleischner guidelines were followed.
[2022-11-07 07:09] VITALS: BP 134/90; PULSE 105; RESP 18; TEMP 36.5; O2SAT 95; BMI 34.4
[2022-11-07 07:26] LABS: MANUAL DIFF FLAG NO
[2022-11-07 07:34] LABS: Basophils Absolute Auto 0.1 X10*3/uL (0.0-0.2); Basophils Percent Auto 0.4 % (0-2); Eosinophils Absolute Auto 0.1 X10*3/uL (0.0-0.4); Eosinophils Percent Auto 0.9 % (0-4); Hematocrit 45.7 % (37.0-47.0); Hemoglobin 15.6 g/dl (12.0-16.0); Imm Gran Abs Auto 0.03 X10*3/uL (0.00-0.03); Imm Gran Pct Auto 0.3 % (0.0-0.4); Lymphocytes Absolute Auto 2.8 X10*3/uL (1.2-4.9); Lymphocytes Percent Auto 23.7 % (20-40); Mean Corpuscular HGB Conc 34.1 g/dl (31.0-35.0); Mean Corpuscular Hemoglobin 29.7 pg (27.0-33.0); Mean Corpuscular Volume 86.9 fL (80.0-98.0); Mean Platelet Volume 9.1 fL (9.4-12.3); Monocytes Absolute Auto 0.7 X10*3/uL (0.1-1.2); Monocytes Percent Auto 6.2 % (2-11); Neutrophils Percent Auto 68.5 % (45-73); Platelet Count 413 X10*3/uL (160-400); Red Blood Count 5.26 X10*6/uL (4.20-5.50); Red Cell Distribution Width 11.9 % (11.0-16.0); White Blood Count 11.6 X10*3/uL (4.8-10.8)
[2022-11-07 07:47] LABS: Appearance Urine Clear; Color Urine Dark Yellow; Glucose Urine UA >=1000 mg/dL (Negative); Leukocyte Esterase Urine Moderate (2+) (Negative); Nitrite Urine Positive (Negative); Specific Gravity - Urine >= 1.030 (1.005-1.025); UMIC TRIGGER UACC YES; Urine Blood Trace (Negative); Urine Ketones Negative (Negative); Urine Protein Negative (Neg-Trace)
[2022-11-07 08:00] VITALS: BP 126/87; PULSE 94; RESP 18; TEMP 37.1; O2SAT 97
[2022-11-07 08:06] LABS: Anion Gap 16 (12-20); Blood Urea Nitrogen 12 mg/dL (9-16); Calcium 9.7 mg/dL (8.4-10.2); Carbon Dioxide 25 mmol/L (22-29); Chloride 98 mmol/L (96-108); Creatinine Clr Calc Pharmacy 91.2; Estimated Glomerular Filt Rate > 60; Glucose Random 552 mg/dL (60-115); Potassium 4.7 mmol/L (3.3-5.1); Sodium 134 mmol/L (135-145)
[2022-11-07 08:15] LABS: Bacteria Urine Trace (None Seen); Hyaline Casts Urine 0-2 /LPF (0-2); Squamous Epithelial Cell Urine 0-2 /HPF (0-2); UACC Culture Trigger YES; WBC Urine >50 /HPF (0-5)
--- NOTE | 2022-11-07 08:26 | ED.GENADULT ---
HPI - General Adult General Chief complaint: Abdominal Pain Stated complaint: abd pain/back pain Time Seen by Provider: 11/07/22 08:20 Source: patient and old records reviewed Mode of arrival: ambulatory Limitations: no limitations History of Present Illness HPI narrative: Patient is a 27-year-old female with history of T2DM, PCOS, recently diagnosed with UTI in this ED on 11/05 returning with suprapubic and right flank pain. She denies any fevers/chills, denies nausea or vomiting. She was prescribed metformin at prior visit but states was unable to fill prescription due to lack of insurance until 12/01/22. She reports being out of her metformin and insulins for the past several months. She denies any abnornal vaginal discharge. She denies dysuria or hematuria. MD complaint: right flank pain Onset (ago): day(s) Location: abdomen Radiation: flank Severity: severe Severity scale (1-10): 8 Quality: burning Pain Consistency: constant Relieving factors: rest Exacerbating factors: movement Associated symptoms: denies other symptoms Treatments prior to arrival: other (antibiotics) Related Data Home Medications Medication Instructions Recorded Confirmed insulin glargine 100 unit/mL (3 10 unit subcut QPM 06/15/21 mL) subcutaneous pen (Lantus Solostar U-100 Insulin) metformin 500 mg tablet 500 mg PO DAILY 06/15/21 06/15/21 Previous Rx's Medication Instructions Recorded clotrimazole 1 % vaginal cream 1 appful vaginal BEDTIME #45 grams 06/15/21 fluconazole 150 mg tablet 150 mg PO Q3D 2 doses #2 tabs 06/15/21 metronidazole 500 mg tablet 500 mg PO BID 7 days #14 tabs 06/20/21 cephalexin 500 mg capsule 500 mg PO Q8H #21 caps 03/31/22 phenazopyridine 200 mg tablet 200 mg PO BID 2 days #4 tabs 03/31/22 (Pyridium) blood sugar diagnostic (Blood #100 ea 11/05/22 Glucose Test strips) blood-glucose meter (Blood Glucose #1 ea 11/05/22 Monitoring kit) cephalexin 500 mg capsule 500 mg PO BID #14 caps 11/05/22 lancets 26 gauge (Easy Touch #100 ea 11/05/22 Safety Lancets) metformin 1,000 mg 24 hr 1,000 mg PO DAILY #30 tabs 11/05/22 tablet,extended release ciprofloxacin HCl 250 mg tablet 500 mg PO BID #28 tabs 11/07/22 glipizide 5 mg tablet 5 mg PO DAILY #30 tabs 11/07/22 metformin 500 mg tablet 1,000 mg PO BID 30 days #120 tabs 11/07/22 Allergies Allergy/AdvReac Type Severity Reaction Status Date / Time No Known Allergies Allergy Verified 07/11/21 00:07 [No Known Allergies*] Review of Systems Review of Systems: As per HPI. Yes all other systems are reviewed and are negative Constitutional: Constitutional: Reports as per HPI [facility] Past Medical History Medical History Diabetes PCOS (polycystic ovarian syndrome) Family History Family History Father Cancer Social History Social History Alcohol intake: never Patient Tobacco Use Status: Never used Tobacco Advance Directives: No Advance Directives Information Provided: Yes Patient : No Gender identity: Female Physical Exam ED Vital Signs: Vital Signs - 24 hr 11/07/22 07:09 11/07/22 08:00 Temperature 97.7 F 98.7 F Pulse Rate 105 H 94 Respiratory Rate 18 18 Blood Pressure 134/90 H 126/87 Pulse Oximetry 95 97 Oxygen Delivery Method Room Air Room Air BMI result Body Mass Index 34.4 Vital signs have been reviewed and appear to be correct. Blood pressure normal. Heart rate normal. Respiratory rate normal. Temperature normal. Oxygen saturation normal. Const General: cooperative, healthy appearing and no acute distress Orientation/consciousness: oriented to person, oriented to place, oriented to time and patient oriented x3 Limitations: no limitations [facility] Head: Yes normocephalic and Yes atraumatic Ears: external ears normal General nose exam: Normal external nose present Face and sinus: Yes face symmetric Mouth: oropharynx normal and moist mucous membranes Throat: Yes uvula midline Eyes Pupils: Equal, round and reactive pupils present Neck Neck: Yes normal visual inspection and Yes supple Resp Effort & Inspection: normal respiratory effort and able to speak in complete sentences Auscultation: clear to auscultation bilaterally Cardio Rate: regular rate Rhythm: regular rhythm Heart sounds: S1 normal heart sound present and S2 normal heart sound present GI Inspection: Yes normal to inspection Palpation (GI): Soft to palpation and Tenderness to palpation present (GI) suprapubicly Auscultation: normoactive bowel sounds General: Yes CVA tenderness on the right Back/Spine/Pelvis Back: CVA tenderness Skin General skin exam: elasticity normal and turgor normal Neuro General: oriented to person, oriented to place, oriented to time, patient oriented x3, moves all extremities, no focal motor deficits and CN's II-XI intact bilaterally Cranial nerves: Yes Equal, round and reactive pupils present Cognition (Neuro): normal cognition Extrem General: Yes full ROM, Yes no pedal edema and Yes no calf tenderness Psych Mental Status: mental status grossly normal Affect: normal affect Thought process: Normal thought process present Medications Administered Discontinued Medications Generic Name Dose Route Start Last Admin Trade Name Freq PRN Reason Stop Dose Admin Sodium Chloride 1,000 mls @ 999 mls/hr 11/07/22 08:36 11/07/22 10:00 Ns IV 11/07/22 09:36 Infused .Q1H1M ONE Infusion Ceftriaxone Sodium 1 gm/ 50 mls @ 100 mls/hr 11/07/22 08:38 11/07/22 09:19 Sodium Chloride IV 11/07/22 09:07 Infused ONCE ONE Infusion Insulin Glargine 20 unit 11/07/22 08:48 11/07/22 09:07 Insulin Glargine,Hum.Rec.Anlog 100 Unit/Ml 10 Ml Vial SUBCUT 11/07/22 08:49 20 unit ONCE ONE Administration Insulin Human Lispro 14 unit 11/07/22 08:36 11/07/22 08:45 Insulin Lispro 100 Unit/Ml 3 Ml Vial SUBCUT 11/07/22 08:37 14 unit ONCE ONE Administration Ketorolac Tromethamine 15 mg 11/07/22 08:57 11/07/22 09:06 Ketorolac Tromethamine 15 Mg/Ml Vial IVPUSH 11/07/22 08:58 15 mg ONCE ONE Administration Medical Decision Making Medical Decision Making MDM Narrative: Patient is a 27-year-old female with history of T2DM, PCOS, recently diagnosed with UTI in this ED on 11/05 returning with suprapubic and right flank pain. On exam patient is awake, A+Ox3, VS WNL, afebrile, abdomen soft TTP suprapubic, right CVA tenderness. Reports noncompliance with DM medications. Concern for pyelpnephritis, renal calculi, hyperglycemia, DKA. Plan: labs, UA, CT abdomen/pelvis, IV ceftriaxone, insulin, pain management, IV fluids 10:24 No anion gap, CT shows no evidence of calculi, likely pyelonephritis. Will discharge patient home with prescription for Cipro, as well as metformin and glipizide, all of which are available for $4 at [facility] as patient is currently without insurance. She states she is able to afford these medications at $4. Referred patient to financial services internship office as well. Instructed patient to follow up with PCP within 2 days. Instructed to follow up with PCP regarding abnormal liver findings on CT. Return precautions discussed at bedside. Differential Diagnosis Differential Diagnoses: The differential diagnosis associated with the presentation includes As above. Admission/Observation Consideration of admission/observation: Escalation of care including admission/observation considered Lab Data MDM Lab Attestation statement: I reviewed the patient's lab results. 11/07/22 07:21 11/07/22 07:21 Labs: Lab Results 11/07/22 11/07/22 11/07/22 Range/Units 07:21 07:21 07:21 WBC 11.6 H (4.8-10.8) X10*3/uL RBC 5.26 (4.20-5.50) X10*6/uL Hgb 15.6 (12.0-16.0) g/dl Hct 45.7 (37.0-47.0) % MCV 86.9 (80.0-98.0) fL MCH 29.7 (27.0-33.0) pg MCHC 34.1 (31.0-35.0) g/dl RDW 11.9 (11.0-16.0) % Plt Count 413 H (160-400) X10*3/uL MPV 9.1 L (9.4-12.3) fL Immature Gran % (Auto) 0.3 (0.0-0.4) % Neut % (Auto) 68.5 (45-73) % Lymph % (Auto) 23.7 (20-40) % [place] % (Auto) 6.2 (2-11) % Eos % (Auto) 0.9 (0-4) % Baso % (Auto) 0.4 (0-2) % Lymph # (Auto) 2.8 (1.2-4.9) X10*3/uL [facility] # (Auto) 0.7 (0.1-1.2) X10*3/uL Eos # (Auto) 0.1 (0.0-0.4) X10*3/uL Baso # (Auto) 0.1 (0.0-0.2) X10*3/uL Abs Immat Gran (auto) 0.03 (0.00-0.03) X10*3/uL Absolute Neuts (auto) 8.0 (2.0-8.3) x10*3/uL Absolute Nucleated RBC 0.000 (0.0-0.012) X10*3/uL Nucleated RBC % (auto) 0.0 (0.0-0.2) /100WBC Sodium 134 L (135-145) mmol/L Potassium 4.7 (3.3-5.1) mmol/L Chloride 98 (96-108) mmol/L Carbon Dioxide 25 (22-29) mmol/L Anion Gap 16 (12-20) BUN 12 (9-16) mg/dL Creatinine 1.03 (0.5-1.4) mg/dL Estim Creat Clear Calc 91.2 Estimated GFR > 60 Random Glucose 552 H* (60-115) mg/dL Calcium 9.7 (8.4-10.2) mg/dL Urine Color Dark Yellow Urine Appearance Clear Urine pH 6.0 (5.0-9.0) Ur Specific [place] >= 1.030 H (1.005-1.025) Urine Protein Negative (Neg-Trace) mg/dL Urine Glucose (UA) >=1000 H (Negative) mg/dL Urine Ketones Negative (Negative) mg/dL Urine Blood Trace H (Negative) Urine Nitrite Positive H (Negative) Ur Leukocyte Esterase Moderate (2+) H (Negative) Urine RBC 6-10 H (0-2) /HPF Urine WBC >50 H (0-5) /HPF Ur Squamous Epith Cells 0-2 (0-2) /HPF Urine Bacteria Trace (None Seen) Hyaline Casts 0-2 (0-2) /LPF Independent Interpretation I performed an independent interpretation of an: CT Scan Interpretation: I independently reviewed the CT scan and agree with the radiologist's interpretation. Radiology Impression Discussion of test interpretation with radiology: I have reviewed the radiologist's reading. Radiologist Impression: FINDINGS: LUNG BASES: The visualized lung bases are unremarkable.? LIVER, GALLBLADDER, AND BILIARY TREE: The liver is mildly enlarged at 17.5 cm in greatest length and demonstrates decreased attenuation consistent with hepatic steatosis. Adjacent to the gallbladder, there is an ill-defined area of decreased attenuation measuring 4.1 x 2.7 x 2.0 cm (2:25:42) differential would include entities such as hemangioma and fat infiltration. No other focal hepatic lesion or biliary ductal dilatation is present. The gallbladder is contracted but otherwise unremarkable with no evidence of radiopaque gallstones, gallbladder wall thickening, or obvious pericholecystic inflammatory changes.? PANCREAS: Unremarkable.? SPLEEN: Minimally prominent at 12.2 cm.? ADRENAL GLANDS: Unremarkable.? KIDNEYS AND URETERS: The right kidney is slightly larger than the left and demonstrates slightly decreased attenuation. There is some minimal fullness in the renal pelvis compared to the left. Please correlate with findings of pyelonephritis. No renal calculi are seen. Both ureters are nondilated. No renal masses are seen. BLADDER: Unremarkable.? GASTROINTESTINAL TRACT: The small and large bowel are unremarkable. The appendix is unremarkable.? ABDOMINAL WALL: No significant hernia is appreciated.? LYMPH NODES: Normal. VASCULAR: Unremarkable. PELVIC VISCERA: Unremarkable.? OSSEOUS STRUCTURES: Unremarkable.? CT/CT abdomen pelvis wo IV con IMPRESSION: 1.? The right kidney is slightly larger than the left and demonstrates slightly decreased attenuation. There is some minimal fullness in the renal pelvis compared to the left. There is no gross hydronephrosis. No calculi are seen. Please correlate with findings of pyelonephritis. 2.? Incidental note made of mildly enlarged fatty liver with an ill-defined area of decreased attenuation adjacent to the gallbladder. Differential would include hemangioma and fat infiltration. MRI could be performed for further evaluation. ? Fleischner guidelines were followed. External Record Review External record reviewed: Inpatient record, Office record and Outpatient record Prescription Management I considered prescription management with: Antibiotic and Other Chronic Conditions Patient?s care impacted by: Diabetes Discharge Plan Discharge Clinical Impression: Hyperglycemia, Pyelonephritis Patient Disposition: Home, Self-Care Instructions: Kidney Infection (ED), Diabetic Hyperglycemia (ED) Additional Instructions: You are being prescribed new antibiotics for a kidney infection (pyelonephritis). Please stop taking the cephalexin and begin taking the Ciprofloxacin immediately. Contact your PCP for a follow up appointment within two days. Return to the emergency department with any worsening pain, difficulty urinating, inability to urinate, fever 100.4F or greater, or any other concerning symptoms. Prescriptions: New metformin 500 mg tablet 1,000 mg PO BID 30 Days Qty: 120 0RF glipizide 5 mg tablet 5 mg PO DAILY Qty: 30 0RF ciprofloxacin HCl 250 mg tablet 500 mg PO BID Qty: 28 0RF No Action metronidazole 500 mg tablet 500 mg PO BID 7 Days Qty: 14 0RF Rx Instructions: Take with food, Avoid alcohol and vinegar products cephalexin 500 mg capsule 500 mg PO Q8H Qty: 21 0RF phenazopyridine [Pyridium] 200 mg tablet 200 mg PO BID 2 Days Qty: 4 0RF metformin 1,000 mg tablet,ER cj.retention 24 hr 1,000 mg PO DAILY Qty: 30 0RF cephalexin 500 mg capsule 500 mg PO BID Qty: 14 0RF (DME) blood-glucose meter [Blood Glucose Monitoring] Kit See Rx Instructions .Route Qty: 1 0RF Rx Instructions: As directed (DME) Blood Glucose Test Strip See Rx Instructions .Route Qty: 100 0RF Rx Instructions: 3 times daily (DME) lancets [Easy Touch Safety Lancets] 26 gauge misc See Rx Instructions .Route Qty: 100 0RF Rx Instructions: As directed metformin 500 mg tablet 500 mg PO DAILY Lantus Solostar U-100 Insulin 100 unit/mL (3 mL) insulin pen 10 unit subcut QPM fluconazole 150 mg tablet 150 mg PO Q3D Qty: 2 5RF Rx Instructions: may repeat second dose 72 hrs after first dose if symptoms persist clotrimazole 1 % cream 1 appful vaginal BEDTIME Qty: 45 4RF
[2022-11-07] MEDS: 0.9 % Sodium Chloride 1,000 ML 999 ML IV (08:45)
[2022-11-07] MEDS: cefTRIAXone sodium 1 GM in 0.9 % Sodium Chloride 50 ML IV (08:45)
[2022-11-07] MEDS: Insulin Lispro 100 UNIT/ML 3 ML VIAL 14 UNIT SUBCUT (08:45)
[2022-11-07] MEDS: Ketorolac Tromethamine 15 MG/ML VIAL IVPUSH (09:06)
[2022-11-07] MEDS: Insulin Glargine,Hum.rec.anlog 100 UNIT/ML 10 ML VIAL 20 UNIT SUBCUT (09:07)
--- NOTE | 2022-11-07 09:09 | PC.NURSE ---
medicated per emar, resting in bed. ct completed. pt educated by md about tamyt script costs.
[2022-11-07 10:36] LABS: Glucose, Whole Blood 265 mg/dL (60-115)
== END 2022-11-07 11:07 | disposition home or self-care (01) ==
PROVIDERS: Emergency Provider Internal Medicine
DX: E11.65 Type 2 diabetes mellitus with hyperglycemia (principal); N12 Tubulo-interstitial nephritis, not specified as acute or chronic
CPT/HCPCS: 36415; 74176; 80048; 81001; 82947; 85025; 87086; 96361; 96365; 96375; 99284; 99285; J0696; J1885

== ENCOUNTER 2023-02-16 09:47 | Outpatient (AMB) | payer OTHER, SELFPAY ==
[2023-02-16 10:37] VITALS: BP 126/80; PULSE 76; TEMP 37; O2SAT 98; BMI 34.3
--- NOTE | 2023-02-16 10:37 | AM.OFFWIN_ITS ---
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 Patient complaining of dysuria and mild nausea x2 days. Patient states this feels similar to when she had a urinary tract infection in the past. She denies any fevers or chills. She denies any flank or back pain. She denies any increased urinary frequency or urgency. She is currently menstruating so it is difficult to tell if she has hematuria. Patient is otherwise feeling well. [facility] Medical History Diabetes PCOS (polycystic ovarian syndrome) Family History Father Cancer Social History Alcohol intake: never Patient Tobacco Use Status: Never used Tobacco Gender identity: Female Female Reproductive History Menstrual Age of Menarche: 12 Review of Systems Const All systems reviewed & are unremarkable except as noted in HPI and below Reports no additional complaints Eyes Reports no additional complaints ENT Reports no additional complaints Card Reports no additional complaints Resp Reports no additional complaints GI Reports no additional complaints Reports no additional complaints Musc Reports no additional complaints Skin/Breast Reports system reviewed and no additional complaints, except as documented Neuro Reports no additional complaints Psych Reports no additional complaints Endo Reports no additional complaints Chemo/Lymph Reports no additional complaints Aller/Immun Reports no additional complaints Physical Exam Const General: cooperative, healthy appearing, no acute distress and well developed Orientation/consciousness: patient oriented x3 HEENT Head: Yes normal to inspection Ears: hearing grossly normal bilaterally General nose exam: Normal external nose present Face and sinus: Yes normal facial exam Mouth: Normal oral and palatal mucosa present Eyes General: appearance normal, both eyes and all related structures Pupils: Equal, round and reactive pupils present EOM: EOMs intact bilaterally Resp Effort & Inspection: normal respiratory effort and no respiratory distress Auscultation: clear to auscultation bilaterally Cardio Rate: regular rate Rhythm: regular rhythm Heart sounds: no gallops, no murmurs and no rubs Peripheral pulses: Peripheral pulses 2+ throughout GI Inspection: No distended Palpation (GI): Soft to palpation and nontender Auscultation: normal bowel sounds General: Yes no CVA tenderness Back/Spine/Pelvis Back: no CVA tenderness Skin General skin exam: no rashes or lesions noted Neuro General: patient oriented x3 Cranial nerves: Yes CN's II-XII intact bilaterally and Yes Equal, round and reactive pupils present Gait exam (Neuro): Normal gait present Motor exam (neuro): 5/5 motor strength present throughout Extrem General: Yes normal to inspection, Yes full ROM and Yes no clubbing, cyanosis or edema Psych Appearance: grossly normal Mental Status: mental status grossly normal Results AMB Random Glucose (hemocue) AMB Random Glucose (hemocue) 335 mg/dL Last Edit by Lebron Jean CMA o n 02/16/23 11:05 AMB Urinalysis, Automated UA Leukoctes 500 [place]/uL Last Edit by Lebron Jean CMA on 02/16/23 11:0 5 UA Nitrite Positive Last Edit by Lebron Jean CMA on 02/16/23 11:05 UA Urobilinogen 8 mg/dL Last Edit by Lebron Jean CMA on 02/16/23 11:0 5 UA Protein 300 mg/dL Last Edit by Lebron Jean CMA on 02/16/23 11:05 UA pH 5.0 Last Edit by Lebron Jean CMA on 02/16/23 11:05 UA Blood 200 Jp/uL Last Edit by Lebron Jean CMA on 02/16/23 11:05 UA Specific [place] 1.030 Last Edit by Lebron Jean CMA on 02/16/23 11:05 UA Ketone Positive Last Edit by Lebron Jean CMA on 02/16/23 11:05 UA Bilirubin 4 mg/dL Last Edit by Lebron Jean CMA on 02/16/23 11:05 UA Glucose 1000 mg/dL Last Edit by Lebron Jean CMA on 02/16/23 11:05 Assessment & Plan Assessment & Plan (1) UTI (urinary tract infection): Code(s): N39.0 - Urinary tract infection, site not specified Plan: Patient has presenting to the office complaining of urinary symptoms including dysuria. POCT urinalysis shows 3+ leukocyte esterase, positive nitrites, 3+ protein, 3+ blood, 3+ ketones, 3+ bilirubin, and 3+ glucose. Patient's vital signs are stable, physical exam is otherwise benign, and patient is overall nontoxic appearing. No CVA tenderness or systemic symptoms to suggest acute pyelonephritis. Patient is safe to be discharged home. History and physical most consistent with an acute uncomplicated cystitis. Patient sent home on p.o. nitrofurantoin 100 mg twice daily x5 days. Recommended symptomatic management including increased fluids, Advil/Tylenol as needed for pain as long as patient has no medical contraindications, and PO phenazopyridine three times daily as needed x 3 days. Patient was advised to follow-up here or proceed directly to the emergency room if they were to develop fever/chills, nausea/vomiting, flank/back pain, or worsening/persistent symptoms. Patient verbalizes understanding and they are in agreement with the plan. Of note, patient does have a history of diabetes mellitus and states that she ran out of her glipizide. She does have 3+ glucose and 3+ ketones in her urine. POCT fingerstick glucose was checked in the office and was found to be elevated at 335. Patient is denying any symptoms of hyperglycemia at this time. She denies increased thirst, increased urinary frequency, headaches, and blurred vision. I did recommend going to the emergency room to rule out diabetic ketoacidosis, but the patient does not have any symptoms of hyperglycemia and patient would prefer not to go to the emergency room at this time. Patient is alert and oriented x4 and believe she has the competence to make her own medical decisions. She was educated on the risks of hyperglycemia. Her blood sugar is likely elevated in the setting of noncompliance with her glipizide as well as acute infection/stress. I will refill a 30 day supply of patient's p.o. glipizide 5 mg daily. Patient has a blood sugar monitor at home and agrees to check her blood sugar regularly over the next several days. Patient was instructed to proceed directly to the emergency room if she were to develop any symptoms of hyperglycemia as detailed above. Patient verbalizes her understa nding and she is in agreement with the plan. Patient feels safe with discharge home at this time. Orders: Orders AMB Random Glucose (hemocue) Today E11.9 - Type 2 diabetes mellitus without complications, Z13.9 - Encounter for screening, unspecified AMB Urinalysis Automated Today Z13.9 - Encounter for screening, unspecified Medications: New nitrofurantoin macrocrystal must administer with a meal/food 100 mg PO BID 10 caps 0RF phenazopyridine 100 mg PO TID PRN 6 tabs 0RF pain Refilled glipizide 5 mg PO DAILY 30 tabs 0RF Coding Level of Care Code New Pt Level 3 (95644) Diagnoses UTI (urinary tract infection) N39.0
== END 2023-02-16 11:25 | disposition home or self-care (01) ==
PROVIDERS: Visit Provider Physician Assistant Medical
DX: E11.9 Type 2 diabetes mellitus without complications (principal); N39.0 Urinary tract infection, site not specified; R30.0 Dysuria
CPT/HCPCS: 81003; 82948; 99051; 99203

== ENCOUNTER 2023-05-22 06:46 | Emergency (ER) | payer OTHER, SELFPAY ==
[2023-05-22 07:07] VITALS: BP 132/99; PULSE 114; RESP 17; TEMP 37.3; O2SAT 98; BMI 37.8
[2023-05-22 08:14] LABS: Influenza A PCR NEGATIVE (Negative); Influenza B PCR NEGATIVE (Negative); Resp Syncy Virus RNA Qual PCR POSITIVE (Negative); SARS COV2 PCR INHOUSE NEGATIVE (Negative)
--- NOTE | 2023-05-22 08:49 | ED.URI ---
HPI - URI/Sore Throat General Chief Complaint: Upper Respiratory Symptoms Stated Complaint: Fever Diff Breathing Asthma Time Seen by Provider: 05/22/23 08:47 Source: patient Mode of arrival: ambulatory Limitations: no limitations History of Present Illness HPI Narrative: This chart is being added on 07/22/2023 since the initial record was not completed at the time of service. 28-year-old history of diabetes mellitus, asthma, PCOS who presents emergency department for evaluation of URI like symptoms. Patient states that she has had a sore throat, rhinorrhea, nonproductive cough, shortness of breath and weakness. She states that her symptoms have been going on for 1 month but has been worse over the last several days. She also is complaining of dental pain. Related Data Home Medications Medication Instructions Recorded Confirmed insulin glargine 100 unit/mL (3 10 unit subcut QPM 06/15/21 mL) subcutaneous pen (Lantus Solostar U-100 Insulin) Previous Rx's Medication Instructions Recorded fluconazole 150 mg tablet 150 mg PO Q3D 2 doses #2 tabs 06/15/21 blood sugar diagnostic (Blood #100 ea 11/05/22 Glucose Test strips) blood-glucose meter (Blood Glucose #1 ea 11/05/22 Monitoring kit) lancets 26 gauge (Easy Touch #100 ea 11/05/22 Safety Lancets) metformin 1,000 mg 24 hr 1,000 mg PO DAILY #30 tabs 11/05/22 tablet,extended release (gastric reten.) metformin 500 mg tablet 1,000 mg (2 x 500 mg) PO BID 30 11/07/22 days #120 tabs glipizide 5 mg tablet 5 mg PO DAILY #30 tabs 02/16/23 nitrofurantoin macrocrystal 100 mg 100 mg PO BID #10 caps 02/16/23 capsule phenazopyridine 100 mg tablet 100 mg PO TID PRN pain 6 doses #6 02/16/23 tabs amoxicillin 500 mg tablet 1,000 mg (2 x 500 mg) PO Q12H 5 05/22/23 days #20 tabs benzonatate 200 mg capsule 200 mg PO TID PRN cough #15 caps 05/22/23 Allergies Allergy/AdvReac Type Severity Reaction Status Date / Time No Known Allergies Allergy Verified 05/22/23 07:07 [No Known Allergies*] Review of Systems Review of Systems: Yes all other systems are reviewed and are negative [facility] Past Medical History [facility] Narrative: Social history: She denies tobacco use. She occasionally drinks alcohol. She denies drug use. Medical History Diabetes PCOS (polycystic ovarian syndrome) Family History Family History Father Cancer Social History Social History Alcohol intake: never Patient Tobacco Use Status: Never used Tobacco Gender identity: Female Physical Exam Vital Signs: Vital Signs: Last Vital Signs Temp 99.2 F 05/22/23 07:07 Pulse 114 H 05/22/23 07:07 Resp 17 05/22/23 07:07 BP 132/99 H 05/22/23 07:07 Pulse Ox 98 05/22/23 07:07 O2 Del Method Room Air 05/22/23 07:07 BMI result Body Mass Index 37.8 Vital signs were normal exam: General: Awake, alert in no distress Head: Normocephalic, atraumatic EENT: PERRL, Lids normal, sclera normal, conjunctiva normal, nose normal , ears normal, throat without erythema or exudates . The patient's dental exam revealed no localized tenderness over a tooth however she does have tenderness with palpation of her gingiva both upper and lower. Neck: Supple, no adenopathy Lung: breath sounds symmetric, no wheezing, rales or rhonchi Chest: symmetric movement, nontender Heart: regular rate and rhythm, normal S1, S2 no murmurs or rubs Abdomen: soft, non-tender, nondistended, normal bowel sounds Back: no vertebral tenderness, no CVAT Extremities: no deformities, moves all extremities symmetrically Skin: no rashes, no lesion, normal color and warmth Neuro: Awake, alert, oriented, normal speech, cranial nerves intact, moves all extremities symmetrically Psych: Pleasant, cooperative Medical Decision Making Medical Decision Making [facility] Narrative: 28-year-old female with a history of diabetes mellitus, asthma, PCOS who presents emergency department with URI like symptoms, asthma exacerbation and dental pain symptoms x1 month but worse over the last several days. Vital signs were unremarkable, physical examination was unremarkable Except for gingival tenderness. Differential diagnosis: Includes but is not limited to URI, pneumonia, asthma exacerbation, COVID-19, influenza, RSV, dental infection, gingivitis my interpretation of the patient's laboratory evaluation is as follows: COVID-19 and influenza were negative. RSV was positive. patient's findings are consistent with URI secondary to RSV virus. Patient also has evidence for gingivitis. Patient was started on who amoxicillin 500 mg q.12 hours for 5 days and advised to rinse her mouth with solution of 50% hydrogen peroxide and water twice a day for 1-2 weeks. She was also given a prescription for Tessalon Perles and advised to take Tylenol ibuprofen for pain. Patient states she has not been able to eat or drink for the last 24 hours and she was advised to stay on a brat diet. She was given a work note as well. Patient was discharged home. Admission/Observation Consideration of admission/observation: Escalation of care including admission/observation considered Lab Data MDM Lab Attestation statement: I reviewed the patient's lab results. Labs: Lab Results 05/22/23 Range/Units 07:27 Influenza Type A (PCR) NEGATIVE (Negative) Influenza Type B (PCR) NEGATIVE (Negative) RSV RNA Qual (PCR) POSITIVE A (Negative) SARS-CoV-2 RNA (RT-PCR) NEGATIVE (Negative) Prescription Management I considered prescription management with: Antibiotic Chronic Conditions Patient?s care impacted by: Diabetes and Other (asthma) Discharge Plan Discharge Clinical Impression: RSV bronchitis, Gingivitis Patient Disposition: Home, Self-Care Instructions: Respiratory Syncytial Virus (ED), Gingivitis (ED) Additional Instructions: Your COVID-19 and influenza tests were negative Your RSV was positive. RSV is a common virus that can cause a severe cold like illness that can last up to 2 weeks and sometimes longer pain. Take Tessalon Perles 200 mg, 1 pill 3 times a day as needed for cough. Take ibuprofen 200 mg pills, 2 pills every 6 hours as needed for pain or fever. Take Tylenol (acetaminophen) 500 mg pills, 2 pills every 6 hours as needed for pain or fever. You do have a gum infection Take amoxicillin 500 mg pills, 2 pills, every 12 hours ( 2 times a day) for 5 days. Make a solution of half hydrogen peroxide and half water. Put a small amount of this in your mouth and swish it around to get on solution on your gums and teeth. Do this for 30 seconds twice a day. Make sure you spit out the solution and do not swallow it. After swish warm water around your teeth and gum for 1 minute and spit out as well . Increase your fluid intake For the next 24 hours, stay on a JOSELO diet (bananas, rice, applesauce, tea and toast). Follow-up with your doctor in 2 days. Please return to the emergency department if your symptoms get worse or if you develop any symptoms that are concerning to you. Please see work note Prescriptions: New amoxicillin 500 mg tablet 1,000 mg PO Q12H 5 Days Qty: 20 0RF benzonatate 200 mg capsule 200 mg PO TID PRN (Reason: cough) Qty: 15 0RF No Action metformin 500 mg tablet 1,000 mg PO BID 30 Days Qty: 120 0RF metformin 1,000 mg tablet,ER cj.retention 24 hr 1,000 mg PO DAILY Qty: 30 0RF (DME) blood-glucose meter [Blood Glucose Monitoring] Kit See Rx Instructions .Route Qty: 1 0RF Rx Instructions: As directed (DME) Blood Glucose Test Strip See Rx Instructions .Route Qty: 100 0RF Rx Instructions: 3 times daily (DME) lancets [Easy Touch Safety Lancets] 26 gauge misc See Rx Instructions .Route Qty: 100 0RF Rx Instructions: As directed nitrofurantoin macrocrystal 100 mg capsule 100 mg PO BID Qty: 10 0RF Rx Instructions: must administer with a meal/food phenazopyridine 100 mg tablet 100 mg PO TID PRN (Reason: pain) Qty: 6 0RF glipizide 5 mg tablet 5 mg PO DAILY Qty: 30 0RF Lantus Solostar U-100 Insulin 100 unit/mL (3 mL) insulin pen 10 unit subcut QPM fluconazole 150 mg tablet 150 mg PO Q3D Qty: 2 5RF Rx Instructions: may repeat second dose 72 hrs after first dose if symptoms persist Stand Alone Forms: Work/School Release Interventions: ED Discharge Assessment Last Done: 05/22/23 09:27 Discharge Date/Time: 05/22/23 09:27
== END 2023-05-22 09:27 | disposition home or self-care (01) ==
LOC: HO.ED 09:26
PROVIDERS: Emergency Provider Emergency Medicine Emergency Medical Services
DX: R50.9 Fever, unspecified (principal); Z20.822 Contact with and (suspected) exposure to COVID-19; Z20.828 Contact with and (suspected) exposure to other viral communicable diseases
CPT/HCPCS: 0241U; 99282; 99283

== ENCOUNTER 2023-10-11 13:31 | Outpatient (AMB) | payer OTHER, SELFPAY ==
[2023-10-11 13:34] VITALS: BP 108/66; PULSE 121; TEMP 36.2; O2SAT 99; BMI 38.0
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
== END 2023-10-11 14:23 | disposition home or self-care (01) ==
PROVIDERS: Visit Provider Nurse Practitioner Family
DX: S91.331A Puncture wound without foreign body, right foot, initial encounter (principal)
CPT/HCPCS: 90471; 90715; 99213

== ENCOUNTER → 2023-10-29 09:35 | Outpatient (BNVA) | payer SELFPAY | DX: R76.11 Nonspecific reaction to tuberculin skin test without active tuberculosis (principal) ==

== ENCOUNTER 2025-02-21 17:32 | Emergency (ER) | payer SELFPAY ==
[2025-02-21 18:05] VITALS: BP 117/68; BP 130/70; PULSE 89; PULSE 98; RESP 17; TEMP 36.3; O2SAT 98; O2SAT 99; BMI 36.8
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
[2025-02-21] MEDS: Diphth,Pertus(ACell),Tet Adult 0.5 ML SYRINGE IM (19:41)
[2025-02-21 19:47] VITALS: BP 108/71; PULSE 90; RESP 17; TEMP 36.5; O2SAT 94
--- OUTSIDE RECORDS SUMMARY | 2025-02-21 20:00 | XMS_ITS | Clinical Summary ---
Author Organization [facility] [address] [place] [address] [place] [phone] Phone Care Team Providers Care Legal Paraprofessional Name Role Phone Yuval Cuevas MD Primary Care Provider Allergies No known active allergies Medications albuterol HFA (PROVENTIL HFA;VENTOLIN HFA) 108 (90 Base) MCG/ACT inhaler Inhale 2 puffs by mouth every 4 (four) hours if needed for wheezing (cough). Active ergocalciferol (VITAMIN D-2) 1,250 mcg (50,000 unit) capsule Take 1 capsule (50,000 Units total) by mouth 1 (one) time per week. 4 Active medroxyPROGESTER one (PROVERA) 10 mg tablet Take 1 tablet (10 mg total) by mouth 1 (one) time each day. For 10 days. 3 Active lancets (OneTouch Delica Plus Lancet) 33 gauge 1 each by Not Applicable route 1 (one) time each day. 3 Active Autolet lancing device Use once daily to check fasting blood sugar 3 Active glipiZIDE (GLUCOTROL) 5 mg tablet 10 mg before breakfast and 5 mg before supper. 270 tablet 1 5 Active predniSONE (DELTASONE) 10 mg tablet Take 2 tabs PO daily for 3 days then 1 tab PO daily for 4 days 10 tablet 5 Active semaglutide (OZEMPIC) 0.25 mg or 0.5 mg (2 mg/3 mL) injection penIndications:T ype 2 diabetes mellitus without complication, without long-term current use of insulin ([facility] [place] V24, [facility] [place] V28),Class 2 obesity due to excess calories without serious comorbidity with body mass index (BMI) of 37.0 to 37.9 in adult Inject 0.25 mg under the skin every 7 (seven) days. 4 Pen 1 5 Active metFORMIN XR (GLUCOPHAGE-XR) 500 mg 24 hr tabletIndication s:Type 2 diabetes mellitus without complication, without long-term current use of insulin ([facility] [place] V24, [facility] [place] V28),Class 2 obesity due to excess calories without serious comorbidity with body mass index (BMI) of 37.0 to 37.9 in adult Take 1 tablet (500 mg total) by mouth 2 (two) times a day. 180 tablet 1 5 Active Active Problems Problem Noted Date Diagnosed Date Type 2 diabetes mellitus wit hout complication, without long-term current use of insulin ([facility] [place] V24, [facility] [place] V28) 03/07/2023 Immunizations Name Administration Dates Next Due DTP 01/07/1998,1997,1997 DTaP / Hib 06/13/2001,08/25/1998 EXsC-ZAA-[id number] (Pentacel) 2mo to less than 5yo 08/25/1998,01/07/1998,1997,1997 Hepatitis B (Uzzigrq-F-Rlgzo , Recombivax HB-Adult) 19yo and older 01/07/1998,1997,1997 Influenza Quadravalent, MDCK , 0.5ml, preservative free (Flucelvax) 6mo and older 03/07/2023,02/26/2019 Measles 04/17/2002 Mumps 1997 OPV 06/04/2001, 8,1997,1997 PPD Test 07/31/2017,07/10/2017,06/06/2001 Rubella 04/08/2001 Tdap Tetanus diptheria acell ular pertussis (Boostrix; Adacel) 7yo and older 03/08/2023 Varicella live (Varivax) 12m o and older 04/17/2002,1997 Surgical History Surgery Date Site/Laterality Comments OTHER SURGICAL HISTORY PROCEDURE: DENIES PREVIOUS SURGERY Medical History Medical History Date Comments PCOS (polycystic ovarian syndrome) DX:PCOS (polycystic ovarian syndrome) Type 2 diabetes mellitus wit hout complications ([facility] V24, [facility] V28) DX:Type 2 prisca betes mellitus without complications (HCC) Obesity DX:Obesity Family History Medical History Relation Name Comments No Known Problems Brother 1 No Known Problems Brother 2 half pater nal Other cancer Father No Known Problems Maternal Grandfather Breast cancer Maternal Grandmother Diabetes Mother No Known Problems Paternal Grandfather No Known Problems Paternal Grandmother Coronary artery disease Neg Hx Ovarian cancer Neg Hx Uterine cancer Neg Hx Relation Name Status Comments Brother 1 Alive Brother 2 Alive Father Maternal Grandfather Maternal Grandmother Mother Alive Paternal Grandfather Paternal Grandmother Social History Tobacco Use Types Packs/Day Years Used Date Smoking Tobacco: Never Smokeless Tobacco: Never Tobacco Cessation:Counseling Given: Not Answered Alcohol Use Standard Drinks/Week Comments Yes 0 (1 standard drink = 0.6 oz pur e alcohol) Housing Instability Answer Date Recorde d Are you worried that in the next 2 months you may not have stable housing? No 06/16/2024 Food Access & Nutrition Answer Date Rec orded Do you have access to a vari ety of food including fruits and vegetables? Yes 06/16/2024 Health Literacy Answer Date Recorded How often do you need to hav e someone help you when you read instructions, pamphlets, or other written material from your doctor or pharmacy? Never 06/16/2024 Caregiver: How often do you need to have someone help you when you read instructions, pamphlets, or other written material from your doctor or pharmacy? Not on file 06/16/2024 Financial Risk Answer Date Recorded How hard is it for you to pa y for the very basics like food, housing, medical care, and air conditioning / heating? Not very hard 06/16/2024 Transportation Answer Date Recorded Has the lack of transportati on kept you from meetings, work, or from getting things needed for daily living? No Has the lack of transportati on kept you from medical appointments or from getting medications? No 06/16/2024 Social Isolation Answer Date Recorded How often do you feel lonely or isolated from th ose around you? Never 06/16/2024 Food Risk Answer Date Recorded Within the past 12 months we worried whether our food would run out before we got money to buy more. Never true 06/16/2024 Within the past 12 months th e food we bought just didn't last and we didn't have money to get more. Never true 06/16/2024 Dependent Care Answer Date Recorded Do you need help finding or paying for care for your loved ones. For example, child advocate or elderly care for an older adult? No 06/16/2024 Education Answer Date Recorded Do you think completing more education or training, like finishing a GED, going to college, or learning a trade, would be helpful for you? Yes 06/16/2024 Employment and Income Answer Date Recor ded During the last four weeks, have you been actively looking for work? No 06/16/2024 Living Situation Answer Date Recorded What is your living situation? 0 06/16/2024 Comments No Sex and Gender Information Value Date Recorded Sex Assigned at Not on file Legal Sex Female 1:51 PM EST Gender Identity Not on file Sexual Orientation Not on file Obstetrics History Para Term AB IAB SAB Ectopic Multiple Livin g Live Births 0 0 0 0 0 0 0 0 Last Filed Vital Signs Vital Sign Reading Time Taken Comments Blood Pressure 114/85 09/16/2024 10:52 AM EDT Pulse 87 09/16/2024 10:52 AM EDT Temperature 36.7 C (98 F) 09/16/2024 10:52 AM EDT Respiratory Rate 18 09/16/2024 10:52 AM EDT Oxygen Saturation - - Inhaled Oxygen Concentration - - Weight 99.3 kg (219 lb) 09/16/2024 10:52 AM EDT Height 162.6 cm (5' 4 ) 09/16/2024 10:52 AM EDT Body Mass Index 37.59 09/16/2024 10:52 AM EDT Plan of Treatment Health Maintenance Due Date Last Done Comments Diabetes: Annual Foot Exam 2007 Diabetes: Annual Retina Eye Exam 2007 Pneumococcal Vaccine: Pediatrics (0 to 5 Years) and At-Risk Patients (6 to 49 Years) (1 of 2 - PCV) 2016 Diabetes: Blood Sugar Control Test (HGBA1C) 08/17/2024 02/18/2024, 02/18/2024, 11/01/2023 Diabetes: Annual Urine Albumin-Creatinine Ratio (uACR) 10/31/2024 11/01/2023 COVID-19 Vaccine ( season) 2025 01/28/2022, 02/03/2021, 12/21/2020 Influenza Vaccine (#1) 2025 , 03/08/2022, 03/07/2021, Additional history exists Diabetes: Annual GFR (Glomerular Filtration Rate) 02/17/2025 02/18/2024, 02/18/2024, 11/01/2023 Social Influencers of Health Screening 06/16/2025 06/16/2024 Cervical Cancer Screening: Pap Smear 03/07/2026 03/07/2023, 03/07/2023 Cholesterol Screening (Lipid Panel) 03/07/2028 03/07/2023 DTaP,Tdap,and Td Vaccines (8 - Td or Tdap) 10/10/2033 10/11/2023, 03/08/2023, 06/13/2001, Additional history exists Hepatitis B Vaccines Completed 01/07/1998, 1997, 1997 IPV Vaccines Completed 06/04/2001, 08/02, 01/07/1998, Additional history exists HIB Vaccines Completed 06/13/2001, 08/02, 08/25/1998, Additional history exists Varicella Vaccines Aged Out 04/17/2002, 1997 No longer eligible based on patient's age to complete this topic Gonorrhea/Chlamydia Screening Discontinued 03/07/2023 HIV Screening Completed 03/07/2023 Hepatitis C Screening Completed 03/07/2023 Depression Screening Completed 06/16/2024 HPV Vaccines Aged Out No longer eligi ble based on patient's age to complete this topic Hepatitis A Vaccines Aged Out No long er eligible based on patient's age to complete this topic MMR Vaccines Aged Out No longer eligi ble based on patient's age to complete this topic Meningococcal ACWY Vaccine Aged Out N o longer eligible based on patient's age to complete this topic Meningococcal B Vaccine Aged Out No l onger eligible based on patient's age to complete this topic RSV Immunization Patients Under 20 months Aged Out No longer eligible based on patient's age to complete this topic Procedures Procedure Name Priority Date/Time Associated Diagnosis Comments ANNUAL BMP BLOOD TEST Routine 02/18/2024 HEMOGLOBIN A1C Routine 02/18/2024 URINE ALBUMIN CREATININE RATIO Routine 11/01/2023 HEPATITIS C SCREENING Routine 03/07/2023 HIV SCREENING Routine 03/07/2023 LIPID PANEL Routine 03/07/2023 HPV Routine 03/07/2023 GONORRHEA/CHLAMYDIA SCRREENING Routine 03/07/2023 from Last 3 Months or Most Recently Relevant to Health Maintenance Results * Annual BMP Blood Test (02/18/2024) [facility] Annual BMP Blood Test abstracted Result [facility] Provider HEALTH MAINTENANCE Final Result * Hemoglobin A1c (02/18/2024) [facility] Hemoglobin A1C 6.4 <=6.5 % Blood Venous blood specimen / Unknown Result [facility] Provider LAB BLOOD ORDERABLES Sophy l Result * Urine Albumin Creatinine Ratio (11/01/2023) [facility] Urine Albumin Creatinine Ratio abstracted Result [facility] Provider HEALTH MAINTENANCE Final Result * Cervical Cancer Screening: HPV (03/07/2023) [facility] Cervical Cancer Screening: HPV abstracted; negative Result [facility] Hannah MARSHALL HEALTH MAINTENANCE Final Result * HIV Screening (03/07/2023) [facility] HIV Screening abstracted [facility] Hannah [facility]SHALL HEALTH MAINTENANCE Final Result * Hepatitis C Screening (03/07/2023) Hepatitis C Screening abstracted Historical Provider HEALTH MAINTENANCE Final Result * Gonorrhea/Chlamydia Screening (03/07/2023) Gonorrhea/Chla mydia Screening abstracted Historical Provider HEALTH MAINTENANCE Final Result * (ABNORMAL) Lipid panel (03/07/2023) LDL/HDL Ratio 4 0 - 4 Triglycerides 126 0 - 150 mg/dL Cholesterol 180 0 - 200 mg/dL HDL 50 >=40 mg/dL LDL Cholesterol 105(A) 0 - 100 mg/dL Blood Venous blood specimen / Unknown Historical Provider LAB BLOOD ORDERABLES Sophy l Result from Last 3 Months or Most Recently Relevant to Health Maintenance Insurance [facility] [employer] [facility] Care Teams Legal Paraprofessional Relationship Specialty Start Date End Date Yuval Cuevas MD [address] [place] [phone] PCP - General 03/07/23
--- OUTSIDE RECORDS SUMMARY | 2025-02-21 20:00 | XMS_ITS | Clinical Summary ---
Author Organization [facility] Address [address] [place] [phone] Phone Care Team Providers Care Stucco Mason Name Role Phone Yuval Cuevas MD Primary Care Provider Allergies No known active allergies Medications albuterol 90 mcg/actuation inhaler Inhale 2 puffs into the lungs. Active ergocalciferol (DRISDOL) 50,000 unit capsule Take 50,000 Units by mouth. 4 Active glipiZIDE (GLUCOTROL) 5 MG tablet 10 mg before breakfast and 5 mg before supper 4 Active lancets (ONETOUCH DELICA PLUS LANCET) 33 gauge Misc 1 each. 3 Active lancing device with lancets Kit Use once daily to check fasting blood sugar 3 Active medroxyPROGESTE Cedric (PROVERA) 10 MG tablet Take 10 mg by mouth. 3 Active metFORMIN (GLUCOPHAGE-XR) 500 MG 24 hr tablet Take 500 mg by mouth 2 (two) times a day. 4 Active medroxyPROGESTE Cedric (PROVERA) 10 MG tabletIndicatio ns:PCOS (polycystic ovarian syndrome) Take 1 tablet (10 mg total) by mouth daily. 10 tablet 5 Active Active Problems No known active problems Family History Relation Status Comments Brother 1 Alive Brother 2 Alive Father Mother Alive Social History Tobacco Use Types Packs/Day Years Used Date Smoking Tobacco: Never Smokeless Tobacco: Never Tobacco Cessation:Counseling Given: Not Answered Alcohol Use Standard Drinks/Week Comments Yes 0 (1 standard drink = 0.6 oz pur e alcohol) Education Answer Date Recorded Are you interested in more education? Not on adonis e 06/24/2024 Are you concerned about learning? Not on file 06/24/2024 No 06/24/2024 No 06/24/2024 Digital Access Answer Date Recorded No 06/24/2024 No 06/24/2024 Reliable internet access at home? Not on file 06/24/2024 Device with a working camera? Not on file Comments No Sex and Gender Information Value Date Recorded Sex Assigned at Not on file Legal Sex Female 8:40 AM EST Gender Identity Not on file Sexual Orientation Not on file Last Filed Vital Signs Vital Sign Reading Time Taken Comments Blood Pressure 108/74 07/08/2024 2:08 PM EST Pulse - - Temperature - - Respiratory Rate - - Oxygen Saturation - - Inhaled Oxygen Concentration - - Weight 99.8 kg (220 lb) 07/08/2024 2:08 PM EST Height 162.6 cm (5' 4 ) 07/08/2024 2:08 PM EST Body Mass Index 37.76 07/08/2024 2:08 PM EST Plan of Treatment Health Maintenance Due Date Last Done Comments CREATININE LEVEL 1997 DEPRESSION SCREENING 2009 HEPATITIS C SCREENING 2015 HIV ONE-TIME SCREENING (18-65 YEARS) 2015 PAP SMEAR 2018 INFLUENZA VACCINE (#1) 2025 , 03/08/2022, 03/07/2021, Additional history exists COVID-19 VACCINE ( season) 2025 01/28/2022, 02/03/2021, 12/21/2020 Adult Td,Tdap Booster 10/10/2033 10/11/2023, 023 HIB VACCINES Completed 06/13/2001, 08/02, 08/25/1998, Additional history exists SMOKING STATUS SCREENING (Once After 26 Yrs) Completed 07/08/2024 HEPATITIS A VACCINES Aged Out No long er eligible based on patient's age to complete this topic MENINGOCOCCAL VACCINES (ACWY) Aged Out No longer eligible based on patient's age to complete this topic MENINGOCOCCAL VACCINES (B) Aged Out N o longer eligible based on patient's age to complete this topic PNEUMOCOCCAL VACCINES (0-49 years) Aged Out No longer eligible based on patient's age to complete this topic Medical Devices Not on file Insurance [place] [employer] ADMIN[employer]AT[employer] Member Subscriber Plan / Payer ( fective 2023-) Name:Zoran Duarte Relation to Subscriber:Self Name:Gerber Duartemaryuri Payer ID:[id number] (NAIC) Type:PPO Address: [address] [place] [phone] [place] [employer] ADMINISTRATORS Member Subscriber Plan / Payer ( fective 2023-Present) Name:Lourdes Duarteshmaryuri Relation to Subscriber:Self Name:Lourdes Duarteshmaryuri Payer ID:[id number] (NA) Type:PPO Address: [place] [phone] [place] [phone] [employer] ADMIN[employer]ATORS Care Teams Stucco Mason Relationship Specialty Start Date End Date Yuval Cuevas MD [address] [place] [phone] PCP - General Internal Medicine 06/24/24 Additional Source Comments The information contained in this document represents components of the legal health record. It is not the complete legal health record.[facility]
[2025-02-21 20:24] VITALS: BP 108/71; PULSE 90; RESP 17; TEMP 36.5; O2SAT 94
== END 2025-02-21 20:26 | disposition home or self-care (01) ==
PROVIDERS: Emergency Provider Student in an Organized Health Care Education/Training Program
DX: S80.211A Abrasion, right knee, initial encounter (principal); S80.212A Abrasion, left knee, initial encounter; V23.49XA Other motorcycle driver injured in collision with car, pick-up truck or van in traffic accident, initial encounter; Y93.9 Activity, unspecified; Y92.410 Unspecified street and highway as the place of occurrence of the external cause; Y99.8 Other external cause status; Z23 Encounter for immunization
CPT/HCPCS: 90471; 90715; 99284

== ENCOUNTER 2025-02-25 15:30 | Outpatient (AMB) | payer OTHER, SELFPAY ==
[2025-02-25 15:35] VITALS: BP 102/70; PULSE 81; TEMP 37.1; O2SAT 99; BMI 36.6
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
--- OUTSIDE RECORDS SUMMARY | 2025-02-25 19:36 | XMS_ITS | Clinical Summary ---
Author Organization [facility] Address [address] [place] [phone] Phone Care Team Providers Care Smooth Stucco Resurfacer Name Role Phone Yuval Cuevas MD Primary [...] topic Medical Devices Not on file Insurance [employer] [employer]MIN[employer] Member Subscriber Plan / Payer ( fective 2023-) Name:Zoran Duarte Relation to Subscriber:Self Name:Gerber Duartemaryuri Payer ID:[id number] (NAIC) Type:PPO Address: [address] [place] [phone] [place] [employer] ADMINISTRATORS Member Subscriber Plan / Payer ( fective 2023-Present) Name:Lourdes Duarteshmaryuri Relation to Subscriber:Self Name:Lourdes Duarteshmaryuri Payer ID:[id number] (NA) Type:PPO Address: [place] [id number] [place] [phone] [employer] [employer] [address] [employer] ADMINISTRATORS Care Teams Smooth Stucco Resurfacer Relationship Specialty Start Date End Date Yuval Cuevas MD [address] [place] [phone] PCP - General Internal Medicine 06/24/24 Additional Source Comments The information contained in this document represents components of the legal health record. It is not the complete legal health record.[facility]
== END 2025-02-25 16:19 | disposition home or self-care (01) ==
PROVIDERS: Visit Provider Physician Assistant Medical
DX: S50.811A Abrasion of right forearm, initial encounter (principal)